=== PATIENT | male | born 1950 | race Caucasian/White ===

== ENCOUNTER 2021-07-13 10:55 | Inpatient (IN) | payer MEDICAID, SELFPAY ==
[2021-07-13] VITALS (10 sets, daily range): BP systolic 103–139; BP diastolic 63–76; PULSE 75–130; RESP 18–26; TEMP 37.1–39.1; O2SAT 63–100; BMI 22.4
--- NOTE | ~2021-07-13 | XR_ITS ---
EXAMINATION: XR CHEST CLINICAL INFORMATION: OGT placement COMPARISON: Chest 07/21/2021 at 7:43 AM TECHNIQUE: Frontal view of the chest was obtained. FINDINGS: The lungs are hyperinflated with patchy airspace opacity left midlung and left lower lobe. Position of right jugular central venous catheter tip in mid SVC. The endotracheal tube is 5.0 cm above the nasim. New enteric tube is below the diaphragm XR/XR chest 1V IMPRESSION: Hyperinflated lungs with airspace disease in the left midlung and left lower lobe. New enteric tube tip is below diaphragm. Endotracheal tube and right jugular central catheter are stable..
--- NOTE | ~2021-07-13 | XR_ITS ---
EXAMINATION: XR CHEST CLINICAL INFORMATION: Aspiration COMPARISON: 07/13/2021 TECHNIQUE: Frontal view of the chest was obtained. FINDINGS: Cardiac leads overlie the chest. The lungs are well expanded. Improved aeration at the right base compared to prior. Increased patchy opacities of the left mid to lower lung. No pleural effusion or pneumothorax. The cardiomediastinal silhouette is normal in size with a calcified aorta. XR/XR chest 1V IMPRESSION: Improved aeration of the right lung compared to prior. Increased patchy left mid to lower lung opacities.
--- NOTE | ~2021-07-13 | XR_ITS ---
EXAMINATION: XR CHEST CLINICAL INFORMATION: Post intubation COMPARISON: 07/21/2021 TECHNIQUE: Frontal view of the chest was obtained. FINDINGS: Endotracheal tube in place terminating approximately 6 cm above the nasim, at the level of the clavicles. Cardiac leads overlie the chest. The lungs are well expanded. Airspace opacities of the left mid to lower lung are again noted, similar to prior. No pleural effusion or pneumothorax. The cardiomediastinal silhouette is normal in size. XR/XR chest 1V IMPRESSION: Endotracheal tube terminating 6 cm above the nasim. Similar appearance of the left lung airspace opacities.
--- NOTE | ~2021-07-13 | XR_ITS ---
EXAMINATION: XR CHEST CLINICAL INFORMATION: Cough. COMPARISON: None TECHNIQUE: Frontal view of the chest was obtained. FINDINGS: The lungs are expanded with patchy airspace opacities in left midlung parahilar region, left lower lobe and right middle lobe consistent with infiltrates. There is no pleural effusion or pneumothorax. The heart size and pulmonary vascularity is normal. XR/XR chest 1V IMPRESSION: Bilateral airspace opacities consistent with infiltrates.
--- NOTE | ~2021-07-13 | XR_ITS ---
EXAMINATION: XR CHEST CLINICAL INFORMATION: Triple-lumen catheter insertion COMPARISON: Chest x-ray earlier this morning TECHNIQUE: Frontal view of the chest was obtained. Today's examination is mildly limited secondary to patient rotation. FINDINGS: Interval insertion of right-sided jugular catheter with tip terminating within the distal SVC. There is no pneumothorax. Endotracheal tube is unchanged in position. Left lung airspace disease is unchanged. XR/XR chest 1V IMPRESSION: No pneumothorax status post catheter placement.
--- NOTE | 2021-07-13 11:09 | ECG_ITS ---
Test Reason : sob Blood Pressure : / mmHG Vent. Rate : 100 BPM Atrial Rate : 100 BPM P-R Int : 144 ms QRS Dur : 080 ms QT Int : 354 ms P-R-T Axes : 075 007 053 degrees QTc Int : 456 ms Artifact in tracing Probable sinus rhythm Likely normal EKG No previous ECGs available Referred By: Milton Grijalva Electronically Signed By:FLORENTINO PEARSON
--- NOTE | 2021-07-13 11:26 | ED_ITS ---
HPI - SOB/Dyspnea General Chief Complaint: Dyspnea Stated Complaint: +COVID,SOB, 84% RA PER SNF Time Seen by Provider: 07/13/21 11:05 Source: EMS Mode of arrival: EMS Limitations: altered mental status History of Present Illness HPI Narrative: This is a 70 years old the patient with history of advanced dementia retirement resident sent here by the retirement a because acute respiratory distress. EMS reported that is COVID positive. The patient is unable to give any history. The patient has also history of alcohol abuse in the past MD elicited complaint: shortness of breath and cough Pertinent past history: other (dementia/covid positive) Onset (ago): hour(s) (6) Timing: constant Severity: moderate Exacerbating factors: coughing Relieving factors: oxygen Related Data Allergies Allergy/AdvReac Type Severity Reaction Status Date / Time No Known Allergies Allergy Verified 07/13/21 11:09 Review of Systems Respiratory: Respiratory: Reports as per HPI [facility] Past Medical History Medical History (Updated 07/13/21 @ 12:54 by Roberto Vega MD) Abnormal results of liver function studies Age-related nuclear cataract, bilateral Alcohol dependence, in remission Alzheimer disease Basal cell carcinoma HCV (hepatitis C virus) History of falling HTN (hypertension) Insomnia, unspecified Need for assistance with personal care Other psychoactive substance abuse, uncomplicated Personal history of nicotine dependence Solitary pulmonary nodule TBI (traumatic brain injury) Unilateral inguinal hernia, without obstruction or gangrene, not specified as recurrent Surgical History (Updated 07/13/21 @ 12:55 by Roberto Vega MD) S/P Mohs surgery for basal cell carcinoma Social History Social History (Updated 07/13/21 @ 12:56 by Roberto Vega MD) Alcohol intake: former Patient Tobacco Use Status: Former Tobacco user Use of substances other than those prescribed or required for medical reasons: Yes Substance Use Type: Crack/Cocaine, Heroin and Marijuana Last Used Substance: Unknown Advance Directives: No Advance Directives Information Provided: No Physical Exam Vital Signs: Vital Signs: Last Vital Signs Temp 102.3 F H 07/13/21 11:12 Pulse 102 H 07/13/21 12:00 Resp 26 H 07/13/21 12:00 BP 136/75 07/13/21 12:00 Pulse Ox 100 07/13/21 12:00 BMI result Body Mass Index 22.4 Const: General: diaphoretic and ill appearing Nutritional Appearance: average body habitus Limitations: no limitations HENMT: Head: Yes normal to inspection Face and sinus: Yes normal facial exam Mouth: Normal oral and palatal mucosa present Throat: Yes posterior oropharynx normal Neck: Neck: Yes normal visual inspection and Yes full ROM Chest: Chest palpation & inspection: normal inspection of the chest Resp: Effort & Inspection: labored Auscultation: rhonchi Cardio: Jugular venous distension: no JVD Rate: regular rate Rhythm: regular rhythm GI: Inspection: Yes normal to inspection Palpation (GI): Soft to palpation, not firm, nontender and no guarding Skin: General skin exam: no rashes or lesions noted Rashes: no rashes Course Reevaluation(s) Reevaluation #1: Improving somewhat, I called the next of Kin who is court appointed layer pt is full code for now,lead case manager consulted as well MDM - SOB/Dyspnea Lab Data Result diagrams: 07/13/21 11:25 07/13/21 11:25 Labs: Lab Results 07/13/21 07/13/21 07/13/21 Range/Units 11:25 11:25 11:25 WBC 7.0 (4.8-10.8) X10*3/uL RBC 5.31 (4.60-5.80) X10*6/uL Hgb 14.7 (14.0-18.0) g/dl Hct 45.1 (42.0-52.0) % MCV 84.9 (80.0-98.0) fL MCH 27.7 (27.0-33.0) pg MCHC 32.6 (31.0-36.0) g/dl RDW 14.6 (11.0-16.0) % Plt Count 165 (160-400) X10*3/uL MPV 11.4 (9.4-12.4) fL Absolute Nucleated RBC 0.000 (0.0-0.012) X10*3/uL Nucleated RBC % (auto) 0.0 (0.0-0.2) /100WBC Neutrophils % (Manual) 71 (45-73) % Band Neutrophils % 16 H (3-5) % Lymphocytes % (Manual) 7 L (20-40) % Atypical Lymphs % (Man) 2 (0-6) % Monocytes % (Manual) 3 (2-11) % Metamyelocytes % 1 % Abs Neuts (Manual) 6.1 (2.0-8.3) X10*3/uL Lymphocytes # (Manual) 0.5 L (1.2-4.9) X10*3/uL Atyp Lymphs # (Manual) 0.1 x10*3/uL Monocytes # (Manual) 0.2 (0.1-1.2) X10*3/uL Metamyelocytes # 0.1 X10*3/uL Platelet Estimate NORMAL (NORMAL) Plt Morphology Comment NOTE RBC Morphology NORMAL VBG pH (7.32-7.43) VBG pCO2 mmHg VBG pO2 mmHg VBG HCO3 (22-26) mmol/L VBG O2 Saturation % VBG Base Excess mmol/L Sodium 143 (135-145) mmol/L Potassium 4.2 (3.3-5.1) mmol/L Chloride 106 (96-108) mmol/L Carbon Dioxide 28 (22-29) mmol/L Anion Gap 13 (12-20) BUN 43 H (9-16) mg/dL Creatinine 1.25 (0.5-1.4) mg/dL Estim Creat Clear Calc 59.8 Estimated GFR 57 Random Glucose 118 H (60-115) mg/dL Lactic Acid (0.5-2.0) mmol/L Calcium 10.3 H (8.4-10.2) mg/dL Total Bilirubin 0.9 (0.0-1.0) mg/dL AST 40 H (5-37) U/L ALT 37 (0-40) U/L Alkaline Phosphatase 67 (39-117) U/L Troponin I High Sens 57.1 H (<3.5-35.0) ng/L Total Protein 7.6 (6.5-8.0) g/dL Albumin 3.9 (3.5-5.0) g/dL COVID-19 (AFSANEH) (Negative) COVID-19 Clin Com 07/13/21 07/13/21 07/13/21 Range/Units 11:26 11:50 11:50 WBC (4.8-10.8) X10*3/uL RBC (4.60-5.80) X10*6/uL Hgb (14.0-18.0) g/dl Hct (42.0-52.0) % MCV (80.0-98.0) fL MCH (27.0-33.0) pg MCHC (31.0-36.0) g/dl RDW (11.0-16.0) % Plt Count (160-400) X10*3/uL MPV (9.4-12.4) fL Absolute Nucleated RBC (0.0-0.012) X10*3/uL Nucleated RBC % (auto) (0.0-0.2) /100WBC Neutrophils % (Manual) (45-73) % Band Neutrophils % (3-5) % Lymphocytes % (Manual) (20-40) % Atypical Lymphs % (Man) (0-6) % Monocytes % (Manual) (2-11) % Metamyelocytes % % Abs Neuts (Manual) (2.0-8.3) X10*3/uL Lymphocytes # (Manual) (1.2-4.9) X10*3/uL Atyp Lymphs # (Manual) x10*3/uL Monocytes # (Manual) (0.1-1.2) X10*3/uL Metamyelocytes # X10*3/uL Platelet Estimate (NORMAL) Plt Morphology Comment RBC Morphology VBG pH 7.39 (7.32-7.43) VBG pCO2 43 mmHg VBG pO2 33 mmHg VBG HCO3 26 (22-26) mmol/L VBG O2 Saturation 42.0 % VBG Base Excess 1.6 mmol/L Sodium (135-145) mmol/L Potassium (3.3-5.1) mmol/L Chloride (96-108) mmol/L Carbon Dioxide (22-29) mmol/L Anion Gap (12-20) BUN (9-16) mg/dL Creatinine (0.5-1.4) mg/dL Estim Creat Clear Calc Estimated GFR Random Glucose (60-115) mg/dL Lactic Acid 3.6 H* (0.5-2.0) mmol/L Calcium (8.4-10.2) mg/dL Total Bilirubin (0.0-1.0) mg/dL AST (5-37) U/L ALT (0-40) U/L Alkaline Phosphatase (39-117) U/L Troponin I High Sens (<3.5-35.0) ng/L Total Protein (6.5-8.0) g/dL Albumin (3.5-5.0) g/dL COVID-19 (AFSANEH) Positive A (Negative) COVID-19 Clin Com See Note Imaging Data Chest x-ray: Radiologist's impression: EXAMINATION: XR CHEST CLINICAL INFORMATION: Cough. COMPARISON: None TECHNIQUE: Frontal view of the chest was obtained. FINDINGS: The lungs are expanded with patchy airspace opacities in left midlung parahilar region, left lower lobe and right middle lobe consistent with infiltrates. There is no pleural effusion or pneumothorax. The heart size and pulmonary vascularity is normal. XR/XR chest 1V IMPRESSION: Bilateral airspace opacities consistent with infiltrates. ? Dictated By: Ezra Saunders MD Signed By: <Electronically signed by Ezra Saunders MD in OV> 07/13/21 1218 DD/ 1155 Procedures EJ/Peripheral Line left basici vein: Time Out Performed: Yes Skin Cleansed in Sterile Fashion: Yes Size (gauge): 16 IV Secured and Dressing Applied: Yes Patient Tolerated Procedure: well Additional Comments: under US cannulated left basilic vein with 18 lashaun long catheter Critical Care Time Critical Care Time Critical Care Time: Yes Total Critical Care Time: 45 Attestation: Lab reviewed, speaking the hospitalist, Discharge Plan Discharge Clinical Impression: Pneumonia due to 2019-nCoV Patient Disposition: Admitted As Inpatient
[2021-07-13 11:32] LABS: VBG Base Excess 1.6 mmol/L; VBG HCO3 26 mmol/L (22-26); VBG pCO2 43 mmHg; VBG pH 7.39 (7.32-7.43); VBG pO2 33 mmHg
[2021-07-13 11:32] LABS: Venous Blood Gas Refer to POC result
[2021-07-13 11:33] LABS: Hematocrit 45.1 % (42.0-52.0); Hemoglobin 14.7 g/dl (14.0-18.0); Mean Corpuscular HGB Conc 32.6 g/dl (31.0-36.0); Mean Corpuscular Hemoglobin 27.7 pg (27.0-33.0); Mean Corpuscular Volume 84.9 fL (80.0-98.0); Mean Platelet Volume 11.4 fL (9.4-12.4); Platelet Count 165 X10*3/uL (160-400); Red Blood Count 5.31 X10*6/uL (4.60-5.80); Red Cell Distribution Width 14.6 % (11.0-16.0)
[2021-07-13] MEDS: Piperacillin Sodium/Tazobactam 4.5 GM in 0.9 % Sodium Chloride 100 ML IV (11:40)
[2021-07-13 11:41] LABS: WBC ABN SCTR FOR CBC 1
[2021-07-13 11:50] LABS: Alanine Aminotransferase 37 U/L (0-40); Albumin Level 3.9 g/dL (3.5-5.0); Alkaline Phosphatase 67 U/L (39-117); Anion Gap 13 (12-20); Aspartate Amino Transferase 40 U/L (5-37); Bilirubin Total 0.9 mg/dL (0.0-1.0); Blood Urea Nitrogen 43 mg/dL (9-16); Calcium 10.3 mg/dL (8.4-10.2); Carbon Dioxide 28 mmol/L (22-29); Chloride 106 mmol/L (96-108); Creatinine Clr Calc Pharmacy 59.8; Estimated Glomerular Filt Rate 57; Glucose Random 118 mg/dL (60-115); Potassium 4.2 mmol/L (3.3-5.1); Sodium 143 mmol/L (135-145); Total Protein 7.6 g/dL (6.5-8.0)
[2021-07-13 11:54] LABS: Troponin-I High Sensitivity 57.1 ng/L (<3.5-35.0)
[2021-07-13 12:00] LABS: Atypical Lymphs Percent Manual 2 % (0-6); Band Neutrophils Percent 16 % (3-5); Lymphocytes Percent Manual 7 % (20-40); Metamyelocytes Percent 1 %; Monocytes Percent Manual 3 % (2-11); Neutrophils Percent Manual 71 % (45-73); Platelet Estimate NORMAL (NORMAL); RBC Morphology NORMAL
[2021-07-13 12:02] LABS: Platelet Morphology Comment NOTE
[2021-07-13] MEDS: Acetaminophen Supp 650 MG SUPP.RECT PR (12:02)
[2021-07-13 12:03] LABS: Atypical Lymph Absolute Manual 0.1 x10*3/uL; Lymphocytes Absolute Manual 0.5 X10*3/uL (1.2-4.9); Metamyelocytes Absolute 0.1 X10*3/uL; Monocytes Absolute Manual 0.2 X10*3/uL (0.1-1.2); Neutrophils Absolute Manual 6.1 X10*3/uL (2.0-8.3)
[2021-07-13] MEDS: 0.9 % Sodium Chloride 2,245.29 ML 2245.29 ML IV (12:06)
[2021-07-13 12:11] LABS: COVID-19 Test Positive (Negative)
[2021-07-13 12:14] LABS: Lactic Acid 3.6 mmol/L (0.5-2.0)
[2021-07-13] MEDS: vancomycin HCL 1,000 MG in 0.9 % Sodium Chloride 250 ML 270 MG IV (12:17)
--- NOTE | 2021-07-13 12:18 | PC.NURSE ---
patient awake, but not verbally responding to staff, pvc monitor applied, sinus tach on monitor, pt on nrb 15+L- o2 sat currently 100%, iv inserted by provider, labs drawn by provider, ivf running per order, iv antibiotics given per order, pt medicated for fever, del real cath inserted, ekg being performed, will continue to monitor.
--- NOTE | 2021-07-13 13:12 | PM.IMHP ---
History of Present Illness Date of Service: 07/13/21 Chief Complaint: hypoxia 70[facility] from [facility] [place], was sent in for hypoxia, patient was noted to be tachypneic, saturating 84% on room air, refusing to wear oxygen, sent to ED. in ED covid positive, cxr with bilateral opacities, febrile, confused. was placed on 100% NRB with recovery of sats to 100%. patient unable to give history, attempted to get more information from [facility], but no answer. Review of Systems Review of Systems: Yes Unobtainable due to mental condition [facility] Medical History (Updated 07/13/21 @ 12:54 by Roberto Vega MD) Abnormal results of liver function studies Age-related nuclear cataract, bilateral Alcohol dependence, in remission Alzheimer disease Basal cell carcinoma HCV (hepatitis C virus) History of falling HTN (hypertension) Insomnia, unspecified Need for assistance with personal care Other psychoactive substance abuse, uncomplicated Personal history of nicotine dependence Solitary pulmonary nodule TBI (traumatic brain injury) Unilateral inguinal hernia, without obstruction or gangrene, not specified as recurrent Surgical History (Updated 07/13/21 @ 12:55 by Roberto Vega MD) S/P Mohs surgery for basal cell carcinoma Social History (Updated 07/13/21 @ 12:56 by Roberto Vega MD) Alcohol intake: former Patient Tobacco Use Status: Former Tobacco user Use of substances other than those prescribed or required for medical reasons: Yes Substance Use Type: Crack/Cocaine, Heroin and Marijuana Last Used Substance: Unknown Advance Directives: No Advance Directives Information Provided: No Meds Allergies Allergy/AdvReac Type Severity Reaction Status Date / Time No Known Allergies Allergy Verified 07/13/21 11:09 Active Medications: Current Medications Dexamethasone Sodium Phosphate (Dexamethasone Sod Phosphate 4 Mg/Ml Vial) 6 mg IVPUSH DAILY [facility] Enoxaparin Sodium (Enoxaparin Sodium 40 Mg/0.4 Ml Syringe) 40 mg SUBCUT Q24H [facility] Pharmacy Consult (Consult Rx Vancomycin Dosing) 1 each MISCELLANE DAILY PRN PRN Reason: Consult order Sodium Chloride (0.9 % Sodium Chloride Flush 3 Ml Syringe) 3 ml IVFLUSH QSHIFT [facility] Physical Exam Vital Signs and Narrative: Vital Signs: Last Vital Signs Temp 102.3 F H 07/13/21 11:12 Pulse 102 H 07/13/21 12:00 Resp 26 H 07/13/21 12:00 BP 136/75 07/13/21 12:00 Pulse Ox 100 07/13/21 12:00 BMI result Body Mass Index 22.4 General: obtunded, moving voluntarily, not answering questions HEENT: atraumatic Neck: normal to visual inspection CVS: S1, S2, RRR Resp: rhonchi bilateral Chest: non tender GI: soft, non tender, non distended : no CVA tenderness Skin: no rashes Extremities: no edema Neuro: moving all 4 limbs, confused Psych: impaired insight Results Labs CBC and Chem 7: 07/13/21 11:25 07/13/21 11:25 Labs: Laboratory Results - last 24 hr 07/13/21 07/13/21 07/13/21 11:25 11:25 11:25 MCV 84.9 MCH 27.7 MCHC 32.6 RDW 14.6 Plt Count 165 MPV 11.4 Absolute Nucleated RBC 0.000 Nucleated RBC % (auto) 0.0 Neutrophils % (Manual) 71 Band Neutrophils % 16 H Lymphocytes % (Manual) 7 L Atypical Lymphs % (Man) 2 Monocytes % (Manual) 3 Metamyelocytes % 1 Abs Neuts (Manual) 6.1 Lymphocytes # (Manual) 0.5 L Atyp Lymphs # (Manual) 0.1 Monocytes # (Manual) 0.2 Metamyelocytes # 0.1 Platelet Estimate NORMAL Plt Morphology Comment NOTE RBC Morphology NORMAL VBG pH VBG pCO2 VBG pO2 VBG HCO3 VBG O2 Saturation VBG Base Excess Anion Gap 13 Estim Creat Clear Calc 59.8 Estimated GFR 57 Random Glucose 118 H Lactic Acid Calcium 10.3 H Total Bilirubin 0.9 AST 40 H ALT 37 Alkaline Phosphatase 67 Troponin I High Sens 57.1 H Total Protein 7.6 Albumin 3.9 COVID-19 (AFSANEH) COVID-19 Clin Com 07/13/21 07/13/21 07/13/21 11:26 11:50 11:50 MCV MCH MCHC RDW Plt Count MPV Absolute Nucleated RBC Nucleated RBC % (auto) Neutrophils % (Manual) Band Neutrophils % Lymphocytes % (Manual) Atypical Lymphs % (Man) Monocytes % (Manual) Metamyelocytes % Abs Neuts (Manual) Lymphocytes # (Manual) Atyp Lymphs # (Manual) Monocytes # (Manual) Metamyelocytes # Platelet Estimate Plt Morphology Comment RBC Morphology VBG pH 7.39 VBG pCO2 43 VBG pO2 33 VBG HCO3 26 VBG O2 Saturation 42.0 VBG Base Excess 1.6 Anion Gap Estim Creat Clear Calc Estimated GFR Random Glucose Lactic Acid 3.6 H* Calcium Total Bilirubin AST ALT Alkaline Phosphatase Troponin I High Sens Total Protein Albumin COVID-19 (AFSANEH) Positive A COVID-19 Clin Com See Note Imaging Radiologist's Impressions: Impressions Chest X-Ray 07/13/21 11:55 IMPRESSION: Bilateral airspace opacities consistent with infiltrates. Assessment and Plan (1) Pneumonia due to 2019-nCoV: Status: Acute 70M presented with hypoxia acute hypoxic respiratory failure and metabolic encephalopathy due to covid 19 decadron o2 for goal 90% wean as tolerated monitor prognostic labs poor prognosis alzheimer dementia with behavioural disturbances also due to TBI will hold mood stabiliziers while obtunded HCV no obvious advanced fibrosis history of etoh, alochol, tobacco dependence in remission dvt prophylaxis - lovenox Full code Quality Stroke Does the patient have a stroke diagnosis?: No VTE Prior VTE?: No VTE Risk Level:: Medical - moderate - high VTE Device Contraindication: Treatment Not Indicated VTE Drug Contraindication: N/A - Med Ordered
--- NOTE | 2021-07-13 13:39 | PHA.MEDREC ---
Pharmacy Consult ? Medication Reconciliation Pharmacy has completed the medication reconciliation.List from snf.
[2021-07-13 13:54] LABS: Reflex Lactate? Lactic Acid Added
[2021-07-13 14:21] LABS: ~Lactic Acid-LAB USE ONLY 1.9 mmol/L (0.5-2.0)
[2021-07-13] MEDS: dexAMETHasone sod phosphate 4 MG/ML VIAL 6 MG IVPUSH (15:08)
[2021-07-13] MEDS: Enoxaparin Sodium 40 MG/0.4 ML SYRINGE SUBCUT (15:08)
--- NOTE | 2021-07-13 15:14 | PC.NURSE ---
patient sleeping, wakes to verbal stim, athletic monitor intact, sinus tach, vss, pt on nrb mask- will speak with provider/respiratory about changing to high flow O2, call brown within reach, will continue to monitor
--- NOTE | 2021-07-13 15:16 | PHA.PROG ---
Admission Date/Time: July 13, 2021 13:02 Indication: Bacteremia Weight in k.843 kg Adjusted body weight in Kg: [place] body weight in Kg: Obesity Dosing Indication % IBW: Serum Creatinine - Last 168 Hours 07/13/21 11:25 Creatinine 1.25 Estimated CrCl and GFR - Last 168 Hours 07/13/21 11:25 Estim Creat Clear Calc 59.8 Estimated GFR 57 Vancomycin Loading Dose: 1500 mg Current Vancomycin Dosing Regimen: 1250mg Q24H Vancomycin Monitoring using AUC goal of 400 - 600 range with trough as surrogate marker: AUC 477; TROUGH 14 Date and Time for next Vancomycin Level to be drawn: 07/15/21 @1300 Pharmacist Comments on Vancomycin Plan: 1000mg dose given in ED. I added an additional 500mg to load the patient at 20mg/kg to get patient therapeutic @ roughly 50 hours. Vancomycin dosing will take advantage of Z2 as a clinical decision support tool that uses Bayesian modeling to calculate individual patient's pharmacokinetic parameters and forecast the patient's drug concentration time course with the target goal AUC 24 range of 400 - 600 mg/L/hr.
--- NOTE | 2021-07-13 15:57 | PC.NURSE ---
per request of hospitalist pt was taken off NRB and put on 8l NC patients o2 sat went down to 63%, pt was put back on nrb, will notify hospitalist
[2021-07-13] MEDS: 0.9 % Sodium Chloride Flush 3 ML SYRINGE IVFLUSH (16:00)
--- NOTE | 2021-07-13 17:02 | PC.NURSE ---
patient placed on high flow O2
[2021-07-13] MEDS: vancomycin HCL 500 MG in 0.9 % Sodium Chloride 100 ML 110 MG IV (17:14)
--- NOTE | 2021-07-13 17:16 | PC.NURSE ---
del real cath patient draining
--- NOTE | 2021-07-13 19:30 | PC.NURSE ---
pt sleeping, wakes to verbal stimulus, del real cath patient/draining, high flow o2 intact, nurse monitoring nsr, vitals currently stable, pt turned/positioned to comfort, will continue to monitor.
--- NOTE | 2021-07-13 22:10 | MHC.CM.PN ---
CM did not meet with admitted pt with bed assignment pending secondary to advanced dementia/TBI and pt being non-verbal. CM reviewed medical record and records from [facility]. No IMM necessary. No HCP on file. Guardianship on file. [employer]ician Yoselin [employer] ([phone]). Relative is Trupti Peacock, cousin ([phone]). Pt is Covid Positive. Fully vaccinated and boosted with Pfizer 07/05/20,07/26/20, and 04/23/21. Pt is a full code. Pt is non-verbal. Prognosis is poor. D/C plan is to return to [facility] if condition improves. Will need S transportation. CM to follow for d/c needs.
--- NOTE | 2021-07-13 22:40 | PC.NURSE ---
patient sleeping, wakes to verbal stimulus, cloth desizing range tender nsr, high flow o2, vss, del real patient/draining clear yellow urine, seizure pads placed on bed because patient was kicking his feet out through the side rails- this was not done for seizure precautions, call brown within reach, will continue to monitor.
[2021-07-14] VITALS (15 sets, daily range): BP systolic 121–161; BP diastolic 28–83; PULSE 63–110; RESP 17–34; TEMP 36.8–37.4; O2SAT 81–97
--- NOTE | 2021-07-14 01:59 | PC.NURSE ---
Pt no longer on HFNC, now on 2L NC maintaining sat 94% and greater.
--- NOTE | 2021-07-14 02:10 | PC.NURSE ---
Per Arabella, RN pt was changed from HFNC to NC around 2330 with good effect. At this time, however, this RN notes that pt is desat to 87% despite 5L NC. RT made aware, plan to place pt back on HFNC. VS stable otherwise. Pt urine sent for processing, edl real cath draining appropriately.
--- NOTE | 2021-07-14 02:17 | PC.NURSE ---
Pt RT, plan for Wm GONZALEZ rather than NC at this time
[2021-07-14 02:30] LABS: Appearance Urine CLOUDY; Color Urine DK YELLOW; Glucose Urine UA NEG (NEG); Leukocyte Esterase Urine NEG (NEG); Nitrite Urine NEG (NEG); PH 5.5 (5.0-8.0); Specific Gravity - Urine >= 1.030 (1.005-1.025); Urine Blood 2+ (NEG); Urine Ketones NEG (NEG); Urine Protein 2+ MG/DL (NEG-TRACE)
[2021-07-14 02:38] LABS: Bacteria Urine TRACE /LPF; Renal Epithelial Cells Urine 1+ /LPF; Squamous Epithelial Cell Urine 2+ /LPF
[2021-07-14 02:39] LABS: Amorphous Sediment Urine 2+ /LPF; Mucus Urine 3+ /LPF
--- NOTE | 2021-07-14 02:39 | PC.NURSE ---
RT placed pt on nguyen at 7lpm. pt o2 sat 91% per lianna, goal is spo2 >/= 90%
--- NOTE | 2021-07-14 03:26 | PC.NURSE ---
Pt resting on stretcher in NAD, breathing with ease on supplemental O2 via humidified nguyen. Pt without nonverbal indicators of pain/discomfort. Pt with seizure pads on side rails x 2 as pt was repositioning self in bed, frequently placed legs through metal side rails. Pt appears in position of comfort. Pt del real cath draining appropriately. Stretcher in low locked position, rails raised, call belll within reach. Pt with red fall prevention socks on, red fall alert wrist band and red fall star sign posted outside of room.
--- NOTE | 2021-07-14 06:36 | PC.NURSE ---
Dr Lopez made aware that this RN held pt's PO omeprazole as pt is unable to follow commands and this RN does not feel it is safe to provide PO to patient. Dr Lopez agreeable.
[2021-07-14 09:15] LABS: Anion Gap 15 (12-20); Blood Urea Nitrogen 35 mg/dL (9-16); Calcium 9.4 mg/dL (8.4-10.2); Carbon Dioxide 21 mmol/L (22-29); Chloride 116 mmol/L (96-108); Creatinine Clr Calc Pharmacy 97.1; Estimated Glomerular Filt Rate > 60; Glucose Fasting 113 mg/dL (60-99); Lactate Dehydrogenase 309 U/L (118-273); Potassium 4.6 mmol/L (3.3-5.1); Sodium 147 mmol/L (135-145)
[2021-07-14] MEDS: dexAMETHasone sod phosphate 4 MG/ML VIAL 6 MG IVPUSH (10:35)
--- NOTE | 2021-07-14 10:54 | PC.NURSE ---
pt is alert, pulling at devices but not with enought force to dislodge anything. cleansed of small firm BM. sao2 droppes to 81% during bed change and back up to 86% on 15L [place] at rest. pt unable to answer any questions.
--- NOTE | 2021-07-14 11:08 | HE.PHANOTE ---
Vancomycin Addendum Vancomycin was orginally DC'd today. Dr Vega restarted. Will start 1500 mg Q24H. SCr has imporved since yesterday decrease from 07/28 to 0.77. Will start at 1200, which is 12 hours after first dose so that patient gets into therapeutic ranges after 3rd dose. Expected AUC 483 with a trough of 13.2 Demetria Brand, PharmD
--- NOTE | 2021-07-14 12:13 | P.PNIM_ITS ---
Subjective Subjective Date of Service: 07/14/21 Interval History: cc: hypoxia interval history: unable to obtain, patient obtunded, not conversing Review of Systems Review of Systems: Yes Unobtainable due to mental condition Physical Exam Vital Signs: Vital Signs: Last Vital Signs Temp 98.4 F 07/14/21 07:38 Pulse 81 07/14/21 10:54 Resp 33 H 07/14/21 11:34 BP 159/79 H 07/14/21 10:54 Pulse Ox 86 L 07/14/21 10:54 BMI result Body Mass Index 22.4 General: obtunded, ill appearing, not talking Resp: rhonchi bilateral, no accessory muscles used CVS: S1,S2,RRR GI: soft, non tender, non distended Neuro: moves all 4 limbs Psych: impaired insight Objective Data Active Medications Dexamethasone Sodium Phosphate (Dexamethasone Sod Phosphate 4 Mg/Ml Vial) 6 mg IVPUSH DAILY [facility] Last Admin: 07/14/21 10:35 Dose: 6 mg Documented by: CLIVE Enoxaparin Sodium (Enoxaparin Sodium 40 Mg/0.4 Ml Syringe) 40 mg SUBCUT Q24H [facility] Last Admin: 07/13/21 15:08 Dose: 40 mg Documented by: FANTA Fluvoxamine Maleate (Fluvoxamine Maleate 50 Mg Tablet) 100 mg PO BID@0900,1700 [facility] Last Admin: 07/14/21 10:36 Dose: Not Given Documented by: CLIVE Non-Admin Reason: NPO Haloperidol Lactate (Haloperidol Lactate 5 Mg/Ml Vial) 2 mg IM ONCE ONE Stop: 07/14/21 12:05 Vancomycin HCl 1,500 mg/ (Sodium Chloride) 500 mls @ 333.333 mls/hr IV Q24H [facility] Dextrose (D5w) 1,000 mls @ 100 mls/hr IVCONT .Q10H [facility] Omeprazole (Omeprazole 20 Mg Capsule.Dr) 20 mg PO BID@0630,1630 [facility] Last Admin: 07/14/21 06:31 Dose: Not Given Documented by: EVELIA Non-Admin Reason: NPO Pharmacy Consult (Consult Rx Vancomycin Dosing) 1 each MISCELLANE DAILY PRN PRN Reason: Consult order Pharmacy Consult (Consult Rx Perform Med Rec) 1 each MISCELLANE ONCE PRN PRN Reason: Consult order Pharmacy Consult (Consult Rx Vancomycin Dosing) 1 each MISCELLANE DAILY PRN PRN Reason: Consult order Sodium Chloride (0.9 % Sodium Chloride Flush 3 Ml Syringe) 3 ml IVFLUSH QSHIFT [facility] Last Admin: 07/14/21 10:19 Dose: Not Given Documented by: CLIVE Non-Admin Reason: Med Not Available Labs CBC & Chem 7: 07/13/21 11:25 07/14/21 08:34 Labs: Laboratory Results - last 24 hr 07/13/21 07/13/21 07/14/21 11:50 14:05 02:08 Anion Gap Estim Creat Clear Calc Estimated GFR Fasting Glucose Lactic Acid 3.6 H* Lactic Acid F/U @ 2Hr 1.9 Calcium Lactate Dehydrogenase C-Reactive Protein Urine Color DK YELLOW Urine Appearance CLOUDY Urine pH 5.5 Ur Specific Ursa >= 1.030 H Urine Protein 2+ H Urine Glucose (UA) NEG Urine Ketones NEG Urine Blood 2+ H Urine Nitrite NEG Ur Leukocyte Esterase NEG Urine RBC 1-4 Urine WBC 1-4 Ur Squamous Epith Cells 2+ Ur Renal Epithelial Cell 1+ Amorphous Sediment 2+ Urine Bacteria TRACE Urine Mucus 3+ 07/14/21 08:34 Anion Gap 15 Estim Creat Clear Calc 97.1 Estimated GFR > 60 Fasting Glucose 113 H Lactic Acid Lactic Acid F/U @ 2Hr Calcium 9.4 D Lactate Dehydrogenase 309 H C-Reactive Protein 29.10 H Urine Color Urine Appearance Urine pH Ur Specific Ursa Urine Protein Urine Glucose (UA) Urine Ketones Urine Blood Urine Nitrite Ur Leukocyte Esterase Urine RBC Urine WBC Ur Squamous Epith Cells Ur Renal Epithelial Cell Amorphous Sediment Urine Bacteria Urine Mucus Microbiology Microbiology Results: Microbiology 07/14/21 07:28 Blood Culture - Final Blood - Venous 07/13/21 11:50 Blood Culture - Preliminary Blood - Venous Prelim: GPC Gram Stain only Assessment and Plan (1) Pneumonia due to 2019-nCoV: Status: Acute Assessment and Plan: ?70M presented with hypoxia acute hypoxic respiratory failure and metabolic encephalopathy due to covid 19 decadron day 2 o2 for goal 90% - requiring high flow now dysphagia due to encephalopathy- npo for now, causing hypernatremia - will start on d5w, monitor bmp monitor prognostic labs poor prognosis GPC in 1/2 bottles ?real bacteremia vs contaminant will treat with vancomycin, follow up species and repeat culture 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
--- NOTE | 2021-07-14 12:19 | PC.NURSE ---
pt became very aggitated, removing high flow, sao2 remained in mid eights or better but aggitation remained. soft restraints applied.
[2021-07-14] MEDS: Haloperidol Lactate 5 MG/ML VIAL 2 MG IM ×3 (12:35→18:29)
--- NOTE | 2021-07-14 13:22 | PC.NURSE ---
after extended period of aggitation and sao2 in 80's despite NRB and high flow pt has calmed. NRB removed and pt remains at rest with soft restraints in place.
[2021-07-14 13:24] LABS: Glucose, Whole Blood 122 mg/dL (60-115)
--- NOTE | 2021-07-14 13:27 | PC.NURSE ---
low of 84% on high flow, pt becoming aggitated again. nrb placed.
[2021-07-14] MEDS: Ketamine HCl/NS 50 MG/5 ML SYRINGE 20 MG IVPUSH (13:48)
--- NOTE | 2021-07-14 14:23 | PC.RT ---
pt getting very restless and agaitated. placed back on HFNC with increase 02 requirements at 100% and flow 55lpm as well as a non rebreather. pt continued to shave sats in the mid 80 to low [address] Vega agrees to give Ketamine. 20 minutes after Ketamine, pt.'s HR 97 Sat 95% rr 28. bp:130/78. Dr. Dial also aware of the situation. pt does have a bed on [facility] but he seems to be unstable to transition to the floor. The pt. requires to be sedated/medicated in order to keep sats up in the low 90's. as the patient is awake and moving he quickly decompensates with sats 70s. Will cotinue to monitor and speak with Dr. Vega as well as RN for plan for patient.
[2021-07-14] MEDS: vancomycin HCL 1,500 MG in 0.9 % Sodium Chloride 500 ML 333.33 MG IV (15:15)
[2021-07-14] MEDS: Dextrose 5 % 1,000 ML 100 ML IVCONT (15:18)
[2021-07-14] MEDS: Enoxaparin Sodium 40 MG/0.4 ML SYRINGE SUBCUT (15:19)
--- NOTE | 2021-07-14 15:45 | PC.NURSE ---
overall pt ismore sedate but remains alert and resistant to interventions. unable to follow commands and answer questions. rectal probe inserted. IV left upper arm was leaking at kink in angiocath tubing adn removed. awaiting second nurse for restablishment of IV. mult failed attempts by this RN>
--- NOTE | 2021-07-14 16:00 | PC.NURSE ---
rn to rn with
[2021-07-14] MEDS: 0.9 % Sodium Chloride Flush 3 ML SYRINGE IVFLUSH (17:40)
--- NOTE | 2021-07-14 18:04 | PC.NURSE ---
pt tolerated transfer [place] [facility] but aggitation started in increase in hallways. on NRB maintained 84-88% enroute then placed back in high flow. RT to continue establishing O2 delivery on floor. This RN giving bedside RN to RN with luis. Pt in need of additional sedation.
[2021-07-14 19:14] LABS: Hematocrit 39.2 % (42.0-52.0); Hemoglobin 12.9 g/dl (14.0-18.0); Mean Corpuscular HGB Conc 32.9 g/dl (31.0-36.0); Mean Corpuscular Hemoglobin 28.2 pg (27.0-33.0); Mean Corpuscular Volume 85.8 fL (80.0-98.0); Mean Platelet Volume 11.4 fL (9.4-12.4); Platelet Count 166 X10*3/uL (160-400); Red Blood Count 4.57 X10*6/uL (4.60-5.80); Red Cell Distribution Width 14.6 % (11.0-16.0); White Blood Count 10.6 X10*3/uL (4.8-10.8)
[2021-07-14 19:23] LABS: D Dimer High Sensitivity 611 NG/ML
[2021-07-15] VITALS (17 sets, daily range): BP systolic 116–154; BP diastolic 58–95; PULSE 69–99; RESP 18–22; TEMP 36.4–37.1; O2SAT 63–99
[2021-07-15] MEDS: Dextrose 5 % 1,000 ML 125 ML IVCONT ×3 (06:03→23:20)
[2021-07-15 06:44] LABS: Mean Corpuscular HGB Conc 32.4 g/dl (31.0-36.0); Mean Corpuscular Hemoglobin 27.5 pg (27.0-33.0); Mean Corpuscular Volume 84.7 fL (80.0-98.0); Mean Platelet Volume 11.9 fL (9.4-12.4); Platelet Count 169 X10*3/uL (160-400); Red Blood Count 4.37 X10*6/uL (4.60-5.80); Red Cell Distribution Width 14.6 % (11.0-16.0); White Blood Count 7.6 X10*3/uL (4.8-10.8)
[2021-07-15 06:50] LABS: D Dimer High Sensitivity 533 NG/ML
[2021-07-15 07:14] LABS: Anion Gap 13 (12-20); Blood Urea Nitrogen 33 mg/dL (9-16); C Reactive Protein 14.13 mg/dL (< or = 0.50); Calcium 9.1 mg/dL (8.4-10.2); Carbon Dioxide 22 mmol/L (22-29); Chloride 116 mmol/L (96-108); Creatinine Clr Calc Pharmacy 103.9; Estimated Glomerular Filt Rate > 60; Glucose Fasting 152 mg/dL (60-99); Lactate Dehydrogenase 215 U/L (118-273); Potassium 3.7 mmol/L (3.3-5.1); Sodium 147 mmol/L (135-145)
[2021-07-15] MEDS: dexAMETHasone sod phosphate 4 MG/ML VIAL 6 MG IVPUSH (08:57)
--- NOTE | 2021-07-15 12:38 | HO.PM.IMPN ---
Subjective Subjective Date of Service: 07/15/21 Interval History: Seen and evaluated this morning Altered mentation with increased level of anxiety Reported overnight restlessness Review of Systems Altered mentation, obtunded, nonverbal Physical Exam Vital Signs: Vital Signs: Last Vital Signs Temp 98.8 F 07/15/21 11:10 Pulse 90 07/15/21 11:10 Resp 20 07/15/21 12:13 BP 116/62 07/15/21 11:10 Pulse Ox 97 07/15/21 11:10 BMI result Body Mass Index 22.4 Const: Other: Constitutional : Altered mentation, withdrawal from pain, restless Neck : Normal inspection, Supple Cardiovascular : No JVP, no lower extremity edema Respiratory : Chest wall moving bilaterally, mildly tachypneic, on oxygen supplement of high flow Gastrointestinal: soft, lax, Normal bowel sounds, Non tender Skin : Warm, Dry Neurological : Altered, withdrawal from pain, nonverbal, GCS 7-8 Objective Data Active Medications Dexamethasone Sodium Phosphate (Dexamethasone Sod Phosphate 4 Mg/Ml Vial) [address] [facility] Last Admin: 07/15/21 08:57 Dose: 6 mg Documented by: VINH Enoxaparin Sodium (Enoxaparin Sodium 40 Mg/0.4 Ml Syringe) [address] [facility] Last Admin: 07/14/21 15:19 Dose: 40 mg Documented by: CLIVE Fluvoxamine Maleate (Fluvoxamine Maleate 50 Mg Tablet) 100 mg PO BID@0900,1700 [facility] Last Admin: 07/15/21 08:38 Dose: Not Given Documented by: VINH Non-Admin Reason: Unable to take oral/npo Haloperidol Lactate (Haloperidol Lactate 5 Mg/Ml Vial) 0.[address] [facility] Vancomycin HCl 1,500 mg/ (Sodium Chloride) 500 mls @ 333.333 mls/hr IV Q24H [facility] Last Infusion: 07/14/21 17:42 Dose: 0 mls/hr Documented by: DAINA Dextrose (D5w) 1,000 mls @ 125 mls/hr IVCONT .Q8H [facility] Last Admin: 07/15/21 06:03 Dose: 125 mls/hr Documented by: VINH Omeprazole (Omeprazole 20 Mg Jacob.) 20 mg PO BID@0630,1630 [facility] Last Admin: 07/15/21 06:02 Dose: Not Given Documented by: VINH Non-Admin Reason: unable to take oral at this time. Pharmacy Consult (Consult Rx Vancomycin Dosing) 1 each MISCELLANE DAILY PRN PRN Reason: Consult order Pharmacy Consult (Consult Rx Perform Med Rec) 1 each MISCELLANE ONCE PRN PRN Reason: Consult order Pharmacy Consult (Consult Rx Vancomycin Dosing) 1 each MISCELLANE DAILY PRN PRN Reason: Consult order Quetiapine Fumarate (Quetiapine Fumarate 50 Mg Tablet) [address] [facility] Sodium Chloride (0.9 % Sodium Chloride Flush 3 Ml Syringe) [address] [facility] Last Admin: 07/15/21 08:37 Dose: Not Given Documented by: VINH Non-Admin Reason: IV Running Labs CBC & Chem 7: 07/15/21 06:19 07/15/21 06:19 Labs: Laboratory Results - last 24 hr 07/14/21 07/14/21 07/14/21 12:33 18:50 18:50 MCV 85.8 MCH 28.2 MCHC 32.9 RDW 14.6 Plt Count 166 MPV 11.4 Absolute Nucleated RBC 0.000 Nucleated RBC % (auto) 0.0 D-Dimer High Sensitivty 611 Anion Gap Estim Creat Clear Calc Estimated GFR POC Glucose 122 H Fasting Glucose Calcium Lactate Dehydrogenase C-Reactive Protein 07/15/21 07/15/21 07/15/21 06:19 06:19 06:19 MCV 84.7 MCH 27.5 MCHC 32.4 RDW 14.6 Plt Count 169 MPV 11.9 Absolute Nucleated RBC 0.000 Nucleated RBC % (auto) 0.0 D-Dimer High Sensitivty 533 Anion Gap 13 Estim Creat Clear Calc 103.9 Estimated GFR > 60 POC Glucose Fasting Glucose 152 H Calcium 9.1 Lactate Dehydrogenase 215 C-Reactive Protein 14.13 H Microbiology Microbiology Results: Microbiology 07/14/21 08:34 Blood Culture - Preliminary Blood - Venous No growth after 24 hours. 07/13/21 11:50 Blood Culture - Final Blood - Venous Coag negative Staphylococcus 07/13/21 11:50 Blood Culture - Preliminary Blood - Venous No growth after 24 hours. 07/14/21 07:28 Blood Culture - Final Blood - Venous Assessment and Plan (1) Acute respiratory failure with hypoxia: Status: Acute (2) Pneumonia due to 2019-nCoV: Status: Acute (3) Acute metabolic encephalopathy: Status: Acute Assessment and Plan: ?70M presented with hypoxia acute hypoxic respiratory failure and metabolic encephalopathy due to covid 19 decadron day 3 o2 for goal 90% - requiring high flow now dysphagia due to encephalopathy- npo for now Cannot take p.o. 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 Seroquel Start Haldol ATC and p.r.n. HCV no obvious advanced fibrosis history of etoh, alochol, tobacco dependence in remission dvt prophylaxis lovenox Full code: Discussed with HCP and will go ahead to the court for petition. Quality Stroke Does the patient have a stroke diagnosis?: No VTE Prior VTE?: No VTE Risk Level:: Medical - moderate - high VTE Device Contraindication: Treatment Not Indicated VTE Drug Contraindication: N/A - Med Ordered
--- NOTE | 2021-07-15 12:44 | MHC.CM.PN ---
per rounds pt s code staus in question ,guardianship needs to be amended if pt reamns a full code ,pt from [facility]
[2021-07-15] MEDS: Haloperidol Lactate 5 MG/ML VIAL 2 MG IVPUSH (13:28)
[2021-07-15] MEDS: Enoxaparin Sodium 40 MG/0.4 ML SYRINGE SUBCUT (15:34)
[2021-07-15] MEDS: Haloperidol Lactate 5 MG/ML VIAL IVPUSH (18:09)
[2021-07-15] MEDS: 0.9 % Sodium Chloride Flush 3 ML SYRINGE IVFLUSH (18:11)
[2021-07-16] VITALS (13 sets, daily range): BP systolic 129–174; BP diastolic 60–77; PULSE 55–81; RESP 17–22; TEMP 36.3–37; O2SAT 93–99
[2021-07-16] MEDS: Haloperidol Lactate 5 MG/ML VIAL IVPUSH ×4 (00:14→23:46)
[2021-07-16] MEDS: 0.9 % Sodium Chloride Flush 3 ML SYRINGE IVFLUSH ×3 (00:14→15:21)
[2021-07-16 07:29] LABS: Hematocrit 33.2 % (42.0-52.0); Hemoglobin 10.8 g/dl (14.0-18.0); Mean Corpuscular HGB Conc 32.5 g/dl (31.0-36.0); Mean Corpuscular Hemoglobin 27.3 pg (27.0-33.0); Mean Corpuscular Volume 84.1 fL (80.0-98.0); Mean Platelet Volume 12.1 fL (9.4-12.4); Platelet Count 144 X10*3/uL (160-400); Red Blood Count 3.95 X10*6/uL (4.60-5.80); Red Cell Distribution Width 14.5 % (11.0-16.0); White Blood Count 6.7 X10*3/uL (4.8-10.8)
[2021-07-16 07:59] LABS: Anion Gap 9 (12-20); Blood Urea Nitrogen 26 mg/dL (9-16); Calcium 8.5 mg/dL (8.4-10.2); Carbon Dioxide 26 mmol/L (22-29); Chloride 108 mmol/L (96-108); Creatinine Clr Calc Pharmacy 116.9; Estimated Glomerular Filt Rate > 60; Glucose Random 143 mg/dL (60-115); Sodium 139 mmol/L (135-145)
[2021-07-16] MEDS: dexAMETHasone sod phosphate 4 MG/ML VIAL 6 MG IVPUSH (08:46)
[2021-07-16] MEDS: Dextrose 5 % 1,000 ML 125 ML IVCONT (08:47)
--- NOTE | 2021-07-16 11:08 | MHC.SL.SWA ---
Speech Pathologist Impression: Pharyngeal Dysphagia Risk of Aspiration Due to: History of Pneumonia Reduced Cognition Dysphasia Diet Status: Upgrade Liquid Consistency and Strategies for Safe Swallow: Liquid Intake Recommendation: [place] Thick Liquid Intake Strategies: Small Sips Solid Food Consistency: Dietary Recommendations: Chopped/Advanced (NDD3) Additional Modifications to Solid Foods: Avoid combined consistencies (e.g. liquid/solid). Oral Medication Intake: Crushed with Puree Compensatory Strategies and Precautions to be Taken for Safe Swallow: Supervision While Eating and Drinking for Safe Swallow: Total Supervision (1:1) Foods to Avoid: Avoid combined consistencies (e.g. liquid/solid). Swallowing Recommended Treatments: Compens. Strategy Educat. Recommendation for Speech: Outpatient Speech Therapy Comment: Pt presents w/Oral Mech, Swallow Phases WNL, however consistently had clinical s/s aspiration on thin liquids. Recommend START diet of Chopped/Advanced (NDD3) w/NECTAR THICK liquids, w/ PILLS CRUSHED IN PUREE. Pt will need full assist currently to eat, due to restraints, and may need supervision if not restrained due to likely impulsivity. Diet recommendations sent via secure text to MD, Machine Rigger, Dietary, w/ request MD put in order as Pt advancing from NPO diet. MANAGER GOVERNMENT will follow while inpt., monitor toleration of diet, reassess swallow and advance diet if warranted. Frequency/Duration: M-F Date Range for Service Req: Timeline to reassess: Vp Digital Marketing Social Media And Crm Clinican/Clinical Fellow: No Supervisory Statement: I have reviewed and agree with the student/clinical fellow's documentation: N/A Speech Language Pathologist: Carrie Lechuga M.A., [facility]MANAGER GOVERNMENT
--- NOTE | 2021-07-16 11:37 | HO.PM.IMPN ---
Subjective Subjective Date of Service: 07/16/21 Interval History: Seen and evaluated this morning Mentation improved, making more eye contact but unable to provide any meaningful answers still in restraints Reported overnight restlessness Review of Systems Unable to obtain any meaningful complaints. Altered ,, nonverbal Physical Exam Vital Signs: Vital Signs: Last Vital Signs Temp 97.7 F 07/16/21 11:23 Pulse 75 07/16/21 11:23 Resp 18 07/16/21 11:23 BP 161/74 H 07/16/21 11:23 Pulse Ox 98 07/16/21 11:23 BMI result Body Mass Index 22.4 Const: Other: Constitutional : Altered mentation, restless, more interactive Neck : Normal inspection, Supple Cardiovascular : No JVP, no lower extremity edema Respiratory : Chest wall moving bilaterally, mildly tachypneic, on oxygen supplement of high flow Gastrointestinal: soft, lax, Normal bowel sounds, Non tender Skin : Warm, Dry Neurological : Altered, withdrawal from pain, nonverbal, GCS 12 Objective Data Active Medications Dexamethasone Sodium Phosphate (Dexamethasone Sod Phosphate 4 Mg/Ml Vial) 6 mg IVPUSH DAILY [facility] Last Admin: 07/16/21 08:46 Dose: 6 mg Documented by: SUKHDEV Enoxaparin Sodium (Enoxaparin Sodium 40 Mg/0.4 Ml Syringe) 40 mg SUBCUT Q24H [facility] Last Admin: 07/15/21 15:34 Dose: 40 mg Documented by: VINH Fluvoxamine Maleate (Fluvoxamine Maleate 50 Mg Tablet) 100 mg PO BID@0900,1700 [facility] Last Admin: 07/15/21 17:46 Dose: Not Given Documented by: VINH Non-Admin Reason: unable to take oral meds Haloperidol Lactate (Haloperidol Lactate 5 Mg/Ml Vial) 0.5 mg IVPUSH QSHIFT [facility] Last Admin: 07/16/21 08:44 Dose: 0.5 mg Documented by: SUKHDEV Dextrose (D5w) 1,000 mls @ 125 mls/hr IVCONT .Q8H [facility] Last Admin: 07/16/21 08:47 Dose: 125 mls/hr Documented by: SUKHDEV Omeprazole (Omeprazole 20 Mg Capsule.Dr) 20 mg PO BID@0630,1630 [facility] Last Admin: 07/16/21 06:26 Dose: Not Given Documented by: AARON Non-Admin Reason: NPO Pharmacy Consult (Consult Rx Vancomycin Dosing) 1 each MISCELLANE DAILY PRN PRN Reason: Consult order Pharmacy Consult (Consult Rx Perform Med Rec) 1 each MISCELLANE ONCE PRN PRN Reason: Consult order Pharmacy Consult (Consult Rx Vancomycin Dosing) 1 each MISCELLANE DAILY PRN PRN Reason: Consult order Quetiapine Fumarate (Quetiapine Fumarate 50 Mg Tablet) 50 mg PO DAILY [facility] Last Admin: 07/15/21 13:25 Dose: Not Given Documented by: VINH Non-Admin Reason: unable to take oral at this time. Sodium Chloride (0.9 % Sodium Chloride Flush 3 Ml Syringe) 3 ml IVFLUSH QSHIFT [facility] Last Admin: 07/16/21 08:46 Dose: 3 ml Documented by: SUKHDEV Labs CBC & Chem 7: 07/16/21 06:14 07/16/21 06:14 Labs: Laboratory Results - last 24 hr 07/16/21 07/16/21 06:14 06:14 MCV 84.1 MCH 27.3 MCHC 32.5 RDW 14.5 Plt Count 144 L MPV 12.1 Absolute Nucleated RBC 0.000 Nucleated RBC % (auto) 0.0 Anion Gap 9 L Estim Creat Clear Calc 116.9 Estimated GFR > 60 Random Glucose 143 H Calcium 8.5 D Microbiology Microbiology Results: Microbiology 07/14/21 08:34 Blood Culture - Preliminary Blood - Venous No growth after 48 hours. 07/13/21 11:50 Blood Culture - Preliminary Blood - Venous No growth after 48 hours. 07/13/21 11:50 Blood Culture - Final Blood - Venous Coag negative Staphylococcus Assessment and Plan (1) Acute metabolic encephalopathy: Status: Acute (2) Acute respiratory failure with hypoxia: Status: Acute (3) Pneumonia due to 2019-nCoV: Status: Acute Assessment and Plan: ?70[facility] [place], was sent in for hypoxia, patient was noted to be tachypneic, saturating 84% on room air, refusing to wear oxygen, sent to ED. 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 Seroquel Resume low-dose Haldol for today HCV no obvious advanced fibrosis history of etoh, alochol, tobacco dependence in remission dvt prophylaxis lovenox Full code: Discussed with HCP and will go ahead to the court for petition to change status to DNR DNI Quality Stroke Does the patient have a stroke diagnosis?: No VTE Prior VTE?: No VTE Risk Level:: Medical - moderate - high VTE Device Contraindication: Treatment Not Indicated VTE Drug Contraindication: N/A - Med Ordered
[2021-07-16] MEDS: fluvoxaMINE Maleate 50 MG TABLET 100 MG PO ×2 (12:40→15:20)
[2021-07-16] MEDS: Enoxaparin Sodium 40 MG/0.4 ML SYRINGE SUBCUT (12:41)
[2021-07-16] MEDS: QUEtiapine Fumarate 50 MG TABLET PO (12:41)
--- NOTE | 2021-07-16 16:29 | PC.NURSE ---
Pt del real removed 16:00. External [place] catheter placed for incontinence / maintaining skin integrity. Initiated voiding trial and due to void 22:00 07/16/21. Will monitor output.
[2021-07-16] MEDS: Dextrose 5 % 1,000 ML 75 ML IVCONT (18:16)
[2021-07-17] VITALS (15 sets, daily range): BP systolic 125–160; BP diastolic 61–87; PULSE 58–78; RESP 16–24; TEMP 36.1–37.3; O2SAT 91–97
[2021-07-17 07:34] LABS: Anion Gap 9 (12-20); Blood Urea Nitrogen 23 mg/dL (9-16); Calcium 8.6 mg/dL (8.4-10.2); Carbon Dioxide 24 mmol/L (22-29); Chloride 107 mmol/L (96-108); Creatinine Clr Calc Pharmacy 116.9; Estimated Glomerular Filt Rate > 60; Glucose Random 123 mg/dL (60-115); Potassium 3.7 mmol/L (3.3-5.1); Sodium 136 mmol/L (135-145)
[2021-07-17] MEDS: fluvoxaMINE Maleate 50 MG TABLET 100 MG PO (08:29)
[2021-07-17] MEDS: dexAMETHasone sod phosphate 4 MG/ML VIAL 6 MG IVPUSH (08:29)
[2021-07-17] MEDS: QUEtiapine Fumarate 50 MG TABLET PO (08:30)
[2021-07-17] MEDS: 0.9 % Sodium Chloride Flush 3 ML SYRINGE IVFLUSH ×3 (08:30→14:31)
--- NOTE | 2021-07-17 12:15 | MHC.CM.PN ---
Per ROUNDS discussion, Patient is not yet medically cleared for dc (IV Decadron, high flow O2); Returning to LTC at [facility] is the goal and CM will continue to follow for dc planning.
--- NOTE | 2021-07-17 12:39 | P.PNIM_ITS ---
Subjective Subjective Date of Service: 07/17/21 Interval History: Seen and evaluated this morning Mentation worse, more sleeping and less responsive still in restraints as he keeps trying to remove the high-flow oxygen whenever other taken of Reported overnight restlessness Review of Systems Unable to obtain any meaningful complaints. Altered ,, nonverbal Physical Exam Vital Signs: Vital Signs: Last Vital Signs Temp 98.8 F 07/17/21 11:59 Pulse 72 07/17/21 11:59 Resp 18 07/17/21 11:59 BP 142/71 H 07/17/21 11:59 Pulse Ox 94 07/17/21 11:59 BMI result Body Mass Index 22.4 Const: Other: Constitutional : Altered mentation, restless, less interactive Neck : Normal inspection, Supple Cardiovascular : No JVP, no lower extremity edema Respiratory : Chest wall moving bilaterally, mildly tachypneic, on oxygen supplement of high flow Gastrointestinal: soft, lax, Normal bowel sounds, Non tender Skin : Warm, Dry Neurological : Altered, withdrawal from pain, nonverbal, GCS 8 Objective Data Active Medications Baricitinib (Baricitinib 2 Mg Tablet) 4 mg PO Q24H [facility] Stop: 07/29/21 12:16 Last Admin: 07/16/21 12:40 Dose: 4 mg Documented by: SUKHDEV Dexamethasone Sodium Phosphate (Dexamethasone Sod Phosphate 4 Mg/Ml Vial) 6 mg IVPUSH DAILY [facility] Last Admin: 07/17/21 08:29 Dose: 6 mg Documented by: DESTINEY Enoxaparin Sodium (Enoxaparin Sodium 40 Mg/0.4 Ml Syringe) 40 mg SUBCUT Q24H [facility] Last Admin: 07/16/21 12:41 Dose: 40 mg Documented by: SUKHDEV Fluvoxamine Maleate (Fluvoxamine Maleate 50 Mg Tablet) 100 mg PO BID@0900,1700 [facility] Last Admin: 07/17/21 08:29 Dose: 100 mg Documented by: DESTINEY Omeprazole (Omeprazole 20 Mg Capsule.) 20 mg PO BID@0630,1630 [facility] Last Admin: 07/17/21 06:23 Dose: Not Given Documented by: LYNDSEY Non-Admin Reason: pt unable to swallow pill Pharmacy Consult (Consult Rx Vancomycin Dosing) 1 each MISCELLANE DAILY PRN PRN Reason: Consult order Pharmacy Consult (Consult Rx Perform Med Rec) 1 each MISCELLANE ONCE PRN PRN Reason: Consult order Pharmacy Consult (Consult Rx Vancomycin Dosing) 1 each MISCELLANE DAILY PRN PRN Reason: Consult order Quetiapine Fumarate (Quetiapine Fumarate 50 Mg Tablet) 12.5 mg PO BID [facility] Sodium Chloride (0.9 % Sodium Chloride Flush 3 Ml Syringe) 3 ml IVFLUSH QSHIFT [facility] Last Admin: 07/17/21 08:30 Dose: 3 ml Documented by: DESTINEY Labs CBC & Chem 7: 07/16/21 06:14 07/17/21 07:06 Labs: Laboratory Results - last 24 hr 07/17/21 07:06 Anion Gap 9 L Estim Creat Clear Calc 116.9 Estimated GFR > 60 Random Glucose 123 H Calcium 8.6 Microbiology Microbiology Results: Microbiology 07/14/21 08:34 Blood Culture - Preliminary Blood - Venous No growth after 48 hours. Assessment and Plan (1) Acute metabolic encephalopathy: Status: Acute (2) Acute respiratory failure with hypoxia: Status: Acute Assessment and Plan: ?70[facility] [place], was sent in for hypoxia, patient was noted to be tachypneic, saturating 84% on room air, refusing to wear oxygen, sent to ED. 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
[2021-07-17] MEDS: Enoxaparin Sodium 40 MG/0.4 ML SYRINGE SUBCUT (14:27)
--- NOTE | 2021-07-17 15:26 | MHC.SL.SWA ---
Speech Pathologist Impression: Pharyngeal Dysphagia Risk of Aspiration Due to: History of Pneumonia Reduced Cognition Dysphasia Diet Status: No Change Liquid Consistency and Strategies for Safe Swallow: Liquid Intake Recommendation: [place] Thick Liquid Intake Strategies: Small Sips Solid Food Consistency: Dietary Recommendations: Chopped/Advanced (NDD3) Additional Modifications to Solid Foods: Avoid combined consistencies (e.g. liquid/solid). Limited PO trials today d/t lethargy. Patient is on CHOPPED/ADVANCED (NDD3) solids and NECTAR THICK liquids, pills CRUSHED in PUREE. Recommend aspiration precautions and 1:1 assistance for PO intake. Patient must be awake and alert for meals. Tray may need to be withheld d/t lethargy. FLATBED PRESS OPERATOR will continue to follow. Oral Medication Intake: Crushed with Puree Compensatory Strategies and Precautions to be Taken for Safe Swallow: Sitting Upright (90 deg) Small Bites and Sips Alternate Liquids/Solids Rate of Ingestion Change Oral Check Avoid Specific Foods Supervision While Eating and Drinking for Safe Swallow: Total Assistance Foods to Avoid: Avoid combined consistencies (e.g. liquid/solid). Swallowing Recommended Treatments: Compens. Strategy Educat. Recommendation for Speech: Outpatient Speech Therapy Soaker Soda Worker Clinican/Clinical Fellow: No Supervisory Statement: I have reviewed and agree with the student/clinical fellow's documentation: N/A Speech Language Pathologist: Wendy Rogers M.A., CCC-FLATBED PRESS OPERATOR
--- NOTE | 2021-07-17 18:15 | PC.NURSE ---
Removed soft restraints 1045am successfully. Pt does still pull off mask, condom cath and shirt time to time but rounder outside room and RN to reorient pt and place back on hiflo. Tele sitter also in place. Pt was able to take med crushes in pudding this am but this afternoon more coughing with any food so wasnt able to safely get afternoon PO admin. Speech closely following.
[2021-07-18] VITALS (9 sets, daily range): BP systolic 136–166; BP diastolic 67–86; PULSE 62–107; RESP 18–28; TEMP 36.1–37.3; O2SAT 88–96
[2021-07-18] MEDS: 0.9 % Sodium Chloride Flush 3 ML SYRINGE IVFLUSH ×2 (00:32→07:59)
[2021-07-18 07:43] LABS: Hematocrit 43.7 % (42.0-52.0); Hemoglobin 14.2 g/dl (14.0-18.0); Mean Corpuscular HGB Conc 32.5 g/dl (31.0-36.0); Mean Corpuscular Hemoglobin 27.9 pg (27.0-33.0); Mean Corpuscular Volume 85.9 fL (80.0-98.0); Mean Platelet Volume 12.3 fL (9.4-12.4); Platelet Count 142 X10*3/uL (160-400); Red Blood Count 5.09 X10*6/uL (4.60-5.80); Red Cell Distribution Width 14.4 % (11.0-16.0); White Blood Count 12.3 X10*3/uL (4.8-10.8)
[2021-07-18] MEDS: fluvoxaMINE Maleate 50 MG TABLET 100 MG PO (07:50)
[2021-07-18] MEDS: dexAMETHasone sod phosphate 4 MG/ML VIAL 6 MG IVPUSH (07:50)
[2021-07-18 10:31] LABS: Anion Gap 15 (12-20); Blood Urea Nitrogen 22 mg/dL (9-16); Calcium 8.3 mg/dL (8.4-10.2); Carbon Dioxide 17 mmol/L (22-29); Chloride 111 mmol/L (96-108); Creatinine Clr Calc Pharmacy 111.7; Estimated Glomerular Filt Rate > 60; Glucose Random 113 mg/dL (60-115); Potassium 4.1 mmol/L (3.3-5.1); Sodium 139 mmol/L (135-145)
[2021-07-18] MEDS: Dextrose 5 % and 0.9 % NaCl 1,000 ML 50 ML IVCONT (10:35)
--- NOTE | 2021-07-18 11:52 | HO.PM.IMPN ---
Subjective Subjective Date of Service: 07/18/21 Interval History: Seen and evaluated this morning Laying in the bed on high-flow oxygen, not responsive Restraints taken of Reported overnight restlessness Review of Systems Unable to obtain any meaningful complaints. Altered ,, nonverbal Physical Exam Vital Signs: Vital Signs: Last Vital Signs Temp 97.4 F 07/18/21 11:45 Pulse 87 07/18/21 11:45 Resp 20 07/18/21 11:45 BP 166/75 H 07/18/21 11:45 Pulse Ox 92 07/18/21 11:45 BMI result Body Mass Index 22.4 Const: Other: Constitutional : Altered mentation,Less restless, less interactive Neck : Normal inspection, Supple Cardiovascular : No JVP, no lower extremity edema Respiratory : Chest wall moving bilaterally, mildly tachypneic, on oxygen supplement of high flow Gastrointestinal: soft, lax, Normal bowel sounds, Non tender Skin : Warm, Dry Neurological : Altered, nonverbal, GCS 8 Objective Data Active Medications Baricitinib (Baricitinib 2 Mg Tablet) 4 mg PO Q24H [facility] Stop: 07/29/21 12:16 Last Admin: 07/17/21 12:54 Dose: Not Given Documented by: DESTINEY Non-Admin Reason: pt unable to emeka PO at this moment Dexamethasone Sodium Phosphate (Dexamethasone Sod Phosphate 4 Mg/Ml Vial) 6 mg IVPUSH DAILY [facility] Last Admin: 07/18/21 07:50 Dose: 6 mg Documented by: NALDO Enoxaparin Sodium (Enoxaparin Sodium 40 Mg/0.4 Ml Syringe) 40 mg SUBCUT Q24H [facility] Last Admin: 07/17/21 14:27 Dose: 40 mg Documented by: DESTINEY Fluvoxamine Maleate (Fluvoxamine Maleate 50 Mg Tablet) 100 mg PO BID@0900,1700 [facility] Last Admin: 07/18/21 07:50 Dose: 100 mg Documented by: NALDO Dextrose/Sodium Chloride (D5ns) 1,000 mls @ 50 mls/hr IVCONT .Q20H [facility] Last Admin: 07/18/21 10:35 Dose: 50 mls/hr Documented by: NALDO Omeprazole (Omeprazole 20 Mg Capsule.Dr) 20 mg PO BID@0630,1630 [facility] Last Admin: 07/18/21 06:22 Dose: Not Given Documented by: MAYRA Non-Admin Reason: Patient Refused Pharmacy Consult (Consult Rx Vancomycin Dosing) 1 each MISCELLANE DAILY PRN PRN Reason: Consult order Pharmacy Consult (Consult Rx Perform Med Rec) 1 each MISCELLANE ONCE PRN PRN Reason: Consult order Pharmacy Consult (Consult Rx Vancomycin Dosing) 1 each MISCELLANE DAILY PRN PRN Reason: Consult order Quetiapine Fumarate (Quetiapine Fumarate 50 Mg Tablet) 12.5 mg PO BID [facility] Sodium Chloride (0.9 % Sodium Chloride Flush 3 Ml Syringe) 3 ml IVFLUSH QSHIFT [facility] Last Admin: 07/18/21 07:59 Dose: 3 ml Documented by: NALDO Labs CBC & Chem 7: 07/18/21 06:52 07/18/21 09:48 Labs: Laboratory Results - last 24 hr 07/18/21 07/18/21 06:52 09:48 MCV 85.9 MCH 27.9 MCHC 32.5 RDW 14.4 Plt Count 142 L MPV 12.3 Absolute Nucleated RBC 0.000 Nucleated RBC % (auto) 0.0 Anion Gap 15 Estim Creat Clear Calc 111.7 Estimated GFR > 60 Random Glucose 113 Calcium 8.3 L Assessment and Plan (1) Acute metabolic encephalopathy: Status: Acute (2) Acute respiratory failure with hypoxia: Status: Acute (3) TBI (traumatic brain injury): Status: Acute Assessment and Plan: ?70[facility] [place], was sent in for hypoxia, patient was noted to be tachypneic, saturating 84% on room air, refusing to wear oxygen, sent to ED. 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
[2021-07-18] MEDS: Enoxaparin Sodium 40 MG/0.4 ML SYRINGE SUBCUT (14:04)
[2021-07-19] VITALS (13 sets, daily range): BP systolic 130–160; BP diastolic 63–91; PULSE 53–75; RESP 18–25; TEMP 35.9–36.9; O2SAT 89–97
[2021-07-19] MEDS: 0.9 % Sodium Chloride Flush 3 ML SYRINGE IVFLUSH ×3 (01:01→19:36)
[2021-07-19] MEDS: Dextrose 5 % and 0.9 % NaCl 1,000 ML 50 ML IVCONT ×2 (01:06→09:03)
--- NOTE | 2021-07-19 03:47 | PC.NURSE ---
awake and alert, speech garbled and minimal. appears comfortable no distress.
[2021-07-19] MEDS: dexAMETHasone sod phosphate 4 MG/ML VIAL 6 MG IVPUSH (09:12)
--- NOTE | 2021-07-19 10:58 | HO.PM.IMPN ---
Subjective Subjective Date of Service: 07/19/21 Interval History: f/u on covid with severe hypoxia, encephalopathy, non verbal decrease responsiveness Review of Systems Review of Systems: Yes Unobtainable due to mental status Respiratory Respiratory: Reports as per [facility] Physical Exam Vital Signs: Vital Signs: Last Vital Signs Temp 96.6 F L 07/19/21 07:43 Pulse 57 07/19/21 07:43 Resp 22 H 07/19/21 08:51 BP 141/65 H 07/19/21 07:43 Pulse Ox 89 L 07/19/21 07:43 BMI result Body Mass Index 22.4 Const: Other: Constitutional : Altered mentation,Less restless, less interactive Neck : Normal inspection, Supple Cardiovascular : No JVP, no lower extremity edema Respiratory : Chest wall moving bilaterally, mildly tachypneic, on oxygen supplement of high flow Gastrointestinal: soft, lax, Normal bowel sounds, Non tender Skin : Warm, Dry Neurological : Altered, nonverbal, GCS 8 Objective Data Active Medications Baricitinib (Baricitinib 2 Mg Tablet) 4 mg PO Q24H [facility] Stop: 07/29/21 12:16 Last Admin: 07/18/21 13:36 Dose: Not Given Documented by: NALDO Non-Admin Reason: unable to swallow Dexamethasone Sodium Phosphate (Dexamethasone Sod Phosphate 4 Mg/Ml Vial) 6 mg IVPUSH DAILY [facility] Last Admin: 07/19/21 09:12 Dose: 6 mg Documented by: NALDO Enoxaparin Sodium (Enoxaparin Sodium 40 Mg/0.4 Ml Syringe) 40 mg SUBCUT Q24H [facility] Last Admin: 07/18/21 14:04 Dose: 40 mg Documented by: NALDO Fluvoxamine Maleate (Fluvoxamine Maleate 50 Mg Tablet) 100 mg PO BID@0900,1700 [facility] Last Admin: 07/19/21 09:14 Dose: Not Given Documented by: NALDO Non-Admin Reason: swallow Dextrose/Sodium Chloride (D5ns) 1,000 mls @ 50 mls/hr IVCONT .Q20H [facility] Last Admin: 07/19/21 09:03 Dose: 50 mls/hr Documented by: NALDO Omeprazole (Omeprazole 20 Mg Jacob.) 20 mg PO BID@0630,1630 [facility] Last Admin: 07/19/21 05:48 Dose: Not Given Documented by: JESSENIA Non-Admin Reason: not following directions Pharmacy Consult (Consult Rx Vancomycin Dosing) 1 each MISCELLANE DAILY PRN PRN Reason: Consult order Pharmacy Consult (Consult Rx Perform Med Rec) 1 each MISCELLANE ONCE PRN PRN Reason: Consult order Pharmacy Consult (Consult Rx Vancomycin Dosing) 1 each MISCELLANE DAILY PRN PRN Reason: Consult order Quetiapine Fumarate (Quetiapine Fumarate 50 Mg Tablet) 12.5 mg PO BID [facility] Last Admin: 07/19/21 10:23 Dose: Not Given Documented by: NALDO Non-Admin Reason: swallow Sodium Chloride (0.9 % Sodium Chloride Flush 3 Ml Syringe) 3 ml IVFLUSH QSHIFT [facility] Last Admin: 07/19/21 09:10 Dose: Not Given Documented by: NALDO Non-Admin Reason: IV Running Labs CBC & Chem 7: 07/18/21 06:52 07/18/21 09:48 Microbiology Microbiology Results: Microbiology 07/14/21 08:34 Blood Culture - Final Blood - Venous No growth after 5 days. 07/13/21 11:50 Blood Culture - Final Blood - Venous No growth after 5 days. Assessment and Plan (1) Acute metabolic encephalopathy: Status: Acute (2) Acute respiratory failure with hypoxia: Status: Acute (3) Alzheimer disease: Status: Acute Assessment and Plan: ?70[facility] [place], was sent in for hypoxia, patient was noted to be tachypneic, saturating 84% on room air, refusing to wear oxygen, sent to ED. acute hypoxic respiratory failure due to covid 19 decadron day 7 o2 for goal 90% - requiring high flow now Continue dexamethasone Continue Baricitinib day 4 If unable to maintain O2 sat will need to be transfer to the ICU hypernatremia Resolved Monitor BMP Dehydration Decreased oral intake, risk of aspiration presenty responsive enought to tolerated oral diet Metabolic encephalopathy Underlying TBI, infection, medicationsmind HCV no obvious advanced fibrosis history of etoh, alochol, tobacco dependence in remission dvt prophylaxis lovenox Full code: Discussed with HCP and will go ahead to the court for petition to change status to DNR DNI, but could decompensate in the interim and ideally should DNR and probably comfort care at this point Quality Stroke Does the patient have a stroke diagnosis?: No VTE Prior VTE?: No VTE Risk Level:: Medical - moderate - high VTE Device Contraindication: Treatment Not Indicated VTE Drug Contraindication: N/A - Med Ordered
[2021-07-19 15:45] LABS: Anion Gap 11 (12-20); Blood Urea Nitrogen 20 mg/dL (9-16); C Reactive Protein 9.73 mg/dL (< or = 0.50); Calcium 8.5 mg/dL (8.4-10.2); Carbon Dioxide 22 mmol/L (22-29); Chloride 113 mmol/L (96-108); Creatinine Clr Calc Pharmacy 113.3; Estimated Glomerular Filt Rate > 60; Glucose Random 156 mg/dL (60-115); Lactate Dehydrogenase 241 U/L (118-273); Potassium 3.9 mmol/L (3.3-5.1); Sodium 142 mmol/L (135-145)
[2021-07-19] MEDS: Enoxaparin Sodium 40 MG/0.4 ML SYRINGE SUBCUT (16:47)
[2021-07-20] VITALS (7 sets, daily range): BP systolic 129–167; BP diastolic 58–76; PULSE 67–93; RESP 16–20; TEMP 36.1–36.3; O2SAT 90–94
[2021-07-20] MEDS: Dextrose 5 % and 0.9 % NaCl 1,000 ML 50 ML IVCONT ×2 (03:08→20:26)
[2021-07-20] MEDS: dexAMETHasone sod phosphate 4 MG/ML VIAL 6 MG IVPUSH (09:55)
[2021-07-20] MEDS: 0.9 % Sodium Chloride Flush 3 ML SYRINGE IVFLUSH ×3 (10:05→20:27)
--- NOTE | 2021-07-20 10:57 | P.PNIM_ITS ---
Subjective Subjective Date of Service: 07/20/21 Interval History: f/u on covid with severe hypoxia, encephalopathy, non verbal decrease responsiveness. He seemed more alert and wake today, transitioned to nasal canula Review of Systems Review of Systems: Yes Unobtainable due to mental status Physical Exam Vital Signs: Vital Signs: Last Vital Signs Temp 97.4 F 07/20/21 08:00 Pulse 67 07/20/21 08:00 Resp 16 07/20/21 08:00 BP 133/58 L 07/20/21 08:00 Pulse Ox 90 L 07/20/21 08:00 BMI result Body Mass Index 22.4 Const: Other: Constitutional : Altered mentation,Less restless, less inter active Neck : Normal inspection, Supple Cardiovascular : No JVP, no lower extremity edema Respiratory : Chest wall moving bilaterally, mildly tachypneic, on oxygen supplement of high flow Gastrointestinal: soft, lax, Normal bowel sounds, Non tender Skin : Warm, Dry Neurological : Altered, nonverbal at baseline Objective Data Active Medications Baricitinib (Baricitinib 2 Mg Tablet) 4 mg PO Q24H [facility] Stop: 07/29/21 12:16 Last Admin: 07/19/21 14:36 Dose: Not Given Documented by: NALDO Non-Admin Reason: swallow Dexamethasone Sodium Phosphate (Dexamethasone Sod Phosphate 4 Mg/Ml Vial) 6 mg IVPUSH DAILY [facility] Last Admin: 07/20/21 09:55 Dose: 6 mg Documented by: CHAYITO Enoxaparin Sodium (Enoxaparin Sodium 40 Mg/0.4 Ml Syringe) 40 mg SUBCUT Q24H [facility] Last Admin: 07/19/21 16:47 Dose: 40 mg Documented by: CLAYTON Fluvoxamine Maleate (Fluvoxamine Maleate 50 Mg Tablet) 100 mg PO BID@0900,1700 [facility] Last Admin: 07/20/21 10:05 Dose: Not Given Documented by: CHAYITO Non-Admin Reason: NPO Dextrose/Sodium Chloride (D5ns) 1,000 mls @ 50 mls/hr IVCONT .Q20H [facility] Last Admin: 07/20/21 03:08 Dose: 50 mls/hr Documented by: NEVA Omeprazole (Omeprazole 20 Mg Capsule.) 20 mg PO BID@0630,1630 [facility] Last Admin: 07/20/21 04:34 Dose: Not Given Documented by: YOUSIF Non-Admin Reason: See Note Pharmacy Consult (Consult Rx Vancomycin Dosing) 1 each MISCELLANE DAILY PRN PRN Reason: Consult order Pharmacy Consult (Consult Rx Perform Med Rec) 1 each MISCELLANE ONCE PRN PRN Reason: Consult order Pharmacy Consult (Consult Rx Vancomycin Dosing) 1 each MISCELLANE DAILY PRN PRN Reason: Consult order Quetiapine Fumarate (Quetiapine Fumarate 50 Mg Tablet) 12.5 mg PO BID [facility] Last Admin: 07/20/21 10:05 Dose: Not Given Documented by: CHAYITO Non-Admin Reason: NPO Sodium Chloride (0.9 % Sodium Chloride Flush 3 Ml Syringe) 3 ml IVFLUSH QSHIFT [facility] Last Admin: 07/20/21 10:05 Dose: 3 ml Documented by: CHAYITO Labs CBC & Chem 7: 07/18/21 06:52 07/19/21 14:57 Labs: Laboratory Results - last 24 hr 07/19/21 14:57 Anion Gap 11 L Estim Creat Clear Calc 113.3 Estimated GFR > 60 Random Glucose 156 H D Calcium 8.5 Lactate Dehydrogenase 241 C-Reactive Protein 9.73 H Microbiology Microbiology Results: Microbiology 07/14/21 08:34 Blood Culture - Final Blood - Venous No growth after 5 days. Assessment and Plan (1) Acute metabolic encephalopathy: Status: Acute (2) Acute respiratory failure with hypoxia: Status: Acute (3) Alzheimer disease: Status: Acute Assessment and Plan: ?70[facility] [place], was sent in for hypoxia, patient was noted to be tachypneic, saturating 84% on room air, refusing to wear oxygen, sent to ED. acute hypoxic respiratory failure due to covid 19 o2 for goal 90% -off high flow Continue dexamethasone D8 Continue Baricitinib day 5 If unable to maintain O2 sat will need to be transfer to the but ICU but so far doing ok hypernatremia Resolved Monitor BMP Dehydration Decreased oral intake, risk of aspiration presenty responsive enought to tolerated oral diet Metabolic encephalopathy Underlying TBI, infection, medicationsmind HCV no obvious advanced fibrosis history of etoh, alochol, tobacco dependence in remission Speech to assess swallow dvt prophylaxis lovenox Full code: Discussed with HCP and will go ahead to the court for petition to change status to DNR DNI, but could decompensate in the interim and ideally should DNR and probably comfort care at this point Quality Stroke Does the patient have a stroke diagnosis?: No VTE Prior VTE?: No VTE Risk Level:: Medical - moderate - high VTE Device Contraindication: Treatment Not Indicated VTE Drug Contraindication: N/A - Med Ordered
[2021-07-20] MEDS: fluvoxaMINE Maleate 50 MG TABLET 100 MG PO ×2 (11:52→17:35)
[2021-07-20] MEDS: QUEtiapine Fumarate 50 MG TABLET 12.5 MG PO (11:56)
--- NOTE | 2021-07-20 15:05 | MHC.SLORD ---
Speech Language Pathology Order Status: Patient would not wake to verbal stimuli. Patient awoke momentarily with sternal rub and change in position, but would not remain awake more than a few seconds. Not appropriate for dysphagia evaluation at this time d/t lethargy. Will attempt tomorrow morning.
[2021-07-20] MEDS: Enoxaparin Sodium 40 MG/0.4 ML SYRINGE SUBCUT (15:33)
[2021-07-20] MEDS: Omeprazole 20 MG CAPSULE.DR PO (15:34)
[2021-07-21] VITALS (28 sets, daily range): BP systolic 50–145; BP diastolic 30–80; PULSE 87–140; RESP 14–40; TEMP 34.9–38.5; O2SAT 81–97; BMI 22.4
[2021-07-21] MEDS: Morphine Sulfate 2 MG/ML CARTRIDGE 1 MG IVPUSH (03:38)
[2021-07-21 04:07] LABS: ABG Base Excess -4.7 mmol/L; ABG HCO3 16 mmol/L (22-26); ABG pCO2 20 mmHg (32-45); ABG pCO2 TC 19 mmHg (32-45); ABG pH TC 7.51 (7.35-7.45); ABG pO2 65 mmHg (83-108); ABG pO2 TC 64 (83-108)
[2021-07-21 04:07] LABS: ABG Refer to POC result
--- NOTE | 2021-07-21 04:35 | PM.EVENT ---
Event Note Date of Service: 07/21/21 Event Note: Acute hypoxic respiratory failure: Patient was having dinner and suddenly appears to be aspirated and became acutely hypoxic; prior to that patient was on 5 L of nasal cannula; transitioned to high-flow nasal cannula non-rebreather; patient was tachypneic, tachycardic, blood pressure of 114/74. On exam patient appears to be in mild respiratory distress; no food noted in his mouth; equal chest expansion equal air entry noted. Chest x-ray ABGs pending. Discussed with ICU Dr. Oseguera; his team evaluated the patient and accepted to the ICU.
--- NOTE | 2021-07-21 04:44 | PC.NURSE ---
Pt maintaining O2 stats on 5L NC throughout the night. At appx 0320 became tachy 130s, RR 32, O2 requirements increased from 5L NC to 100% hiflo. MD up to bedside. Chest xray, ABGs ordered. 1x dose IVP 1mg morphine given. ICU consult. Concern for aspiration as pt choked on dinner on previous shift. Deep suction with no aspirate. Transferred to ICU.
[2021-07-21] MEDS: Midazolam HCl/PF 2 MG/2 ML VIAL 8 MG IM (05:03)
[2021-07-21] MEDS: propofoL 200 MG/20 ML VIAL 30 MG IVPUSH (05:13)
[2021-07-21] MEDS: propofoL 1,000 MG/100 ML VIAL 8.98 MG IVCONT ×2 (05:14→14:49)
[2021-07-21] MEDS: EPINEPHrine 1 MG/10 ML SYRINGE IVPUSH (05:19)
[2021-07-21] MEDS: Calcium Chloride 1 GM/10 ML SYRINGE IVPUSH (05:19)
--- NOTE | 2021-07-21 06:29 | W.PM.CCHP ---
Procedures Date of Service Date of Service: 07/21/21 Intubation Intubation Comments: Patient with acute respiratory distress, requiring emergent intubation for hypoxemia. Patient intubated with 7.5 cuffed ET tube under glide scope guidance with visualization of vocal cords, without immediate complications. ET tube position verified with Chest XRAY. Consent for Procedure: Emergent-no informed consent obtained Sedative: ketamine (IM ) Mg given: 100 Laryngoscope: fiber optic video scope ET tube size: 7.5 Tube secured depth (cm): 25 Tube secured location: lips Tube placement confirmation: visualized tube passing through cords, equal breath sounds bilaterally, no breath sounds over epigastrium and confirmation by capnometry Patient tolerated procedure: well and no complications Intubation complications: none
--- NOTE | 2021-07-21 06:49 | W.PM.CCHP ---
Procedures Date of Service Date of Service: 07/21/21 Central Line Placement Right IJ: Central Line Comments: Right internal jugular triple-lumen central venous catheter emergently placed for vasopressor support under ultrasound guidance and usual sterile conditions with no immediate complications. Line position verified on chest x-ray.
[2021-07-21] MEDS: Ketamine HCl 500 MG/5 ML VIAL 100 MG IM (06:58)
[2021-07-21] MEDS: Ketamine HCl 500 MG in 0.9 % Sodium Chloride 250 ML 15.27 MG IVCONT (06:59)
[2021-07-21] MEDS: 0.9 % Sodium Chloride Flush 3 ML SYRINGE IVFLUSH (06:59)
--- NOTE | 2021-07-21 07:01 | PC.NURSE ---
Pt to ICU at 0445. Pt maintaining spO2 80s on nrb. Decision to intubate. No IV access, 100 mg IM ketamine and 8 mg IM versed given. Additional 4 mg IM ativan given. Intubated at 0510, ET tube #7.5, 25 cm at the lip. IV access obtained, 30 mg IV propofol given, propofol gtt started at 20 mcg/kg/min. At 0515 BP 57/32 1 mg IV epi and 1 amp calcium chloride given. Levophed started, see mar titration. At 0544 ET cuff losing air, ET tube changed, tube remains #7.5 25 cm at lip. Vent settings ACVC, see vent assessment bundle.
[2021-07-21] MEDS: fentaNYL citrate/NS 1,000 MCG/100 ML PLAST..BAG 5 MCG IVCONT (07:48)
[2021-07-21 07:58] LABS: VBG Base Excess -7.7 mmol/L; VBG HCO3 18 mmol/L (22-26); VBG pCO2 40 mmHg; VBG pH 7.26 (7.32-7.43); VBG pO2 50 mmHg
[2021-07-21 08:04] LABS: Basophils Absolute Auto 0.1 X10*3/uL (0.0-0.2); Basophils Percent Auto 0.3 % (0-2); Hematocrit 37.3 % (42.0-52.0); Imm Gran Abs Auto 0.41 X10*3/uL (0.00-0.03); Imm Gran Pct Auto 1.2 % (0.0-0.4); Lymphocytes Absolute Auto 0.5 X10*3/uL (1.2-4.9); Lymphocytes Percent Auto 1.3 % (20-40); MANUAL DIFF FLAG SCAN; Mean Corpuscular HGB Conc 32.2 g/dl (31.0-36.0); Mean Corpuscular Hemoglobin 27.7 pg (27.0-33.0); Mean Corpuscular Volume 86.1 fL (80.0-98.0); Monocytes Absolute Auto 0.8 X10*3/uL (0.1-1.2); Monocytes Percent Auto 2.2 % (2-11); Neutrophils Absolute Auto 32.8 x10*3/uL (2.0-8.3); Platelet Count 321 X10*3/uL (160-400); Red Blood Count 4.33 X10*6/uL (4.60-5.80); Red Cell Distribution Width 14.6 % (11.0-16.0); SCAN SMEAR FLAG 1; Venous Blood Gas Refer to POC result
[2021-07-21 08:06] LABS: White Blood Count 34.5 X10*3/uL (4.8-10.8)
[2021-07-21 08:23] LABS: Alanine Aminotransferase 40 U/L (0-40); Alkaline Phosphatase 60 U/L (39-117); Anion Gap 15 (12-20); Aspartate Amino Transferase 32 U/L (5-37); Bilirubin Total 0.8 mg/dL (0.0-1.0); Blood Urea Nitrogen 23 mg/dL (9-16); Carbon Dioxide 20 mmol/L (22-29); Chloride 116 mmol/L (96-108); Creatinine Clr Calc Pharmacy 75.5; Estimated Glomerular Filt Rate > 60; Glucose Random 118 mg/dL (60-115); Magnesium 2.3 mg/dL (1.6-2.6); Phosphorus 4.4 mg/dL (2.7-4.5); Potassium 3.6 mmol/L (3.3-5.1); Sodium 147 mmol/L (135-145)
[2021-07-21 08:31] LABS: Albumin Level 2.9 g/dL (3.5-5.0); Calcium 10.1 mg/dL (8.4-10.2); Total Protein 6.1 g/dL (6.5-8.0)
[2021-07-21] MEDS: Cisatracurium Besylate 20 MG/10 ML VIAL IVPUSH (08:40)
[2021-07-21 08:46] LABS: SLIDE REVIEW VERIFIED
[2021-07-21] MEDS: dexAMETHasone sod phosphate 4 MG/ML VIAL 6 MG IVPUSH (09:13)
[2021-07-21] MEDS: fluvoxaMINE Maleate 50 MG TABLET 100 MG PO ×2 (09:14→16:56)
[2021-07-21] MEDS: QUEtiapine Fumarate 25 MG TABLET 12.5 MG PO ×2 (09:14→21:55)
[2021-07-21] MEDS: Ampicillin Sodium/Sulbactam Na 3 GM in 0.9 % Sodium Chloride 100 ML IV ×3 (09:14→21:57)
[2021-07-21 10:06] LABS: Troponin-I High Sensitivity 51.4 ng/L (<3.5-35.0)
[2021-07-21] MEDS: Lactated Ringers 1,000 ML 500 ML IVCONT (10:48)
--- NOTE | 2021-07-21 11:03 | MHC.CLN ---
PT IS MODERATELY MALNOURISHED PT WITH MILDLY DEPLETED SUBCUTANEOUS FAT AND MUSCLE MASS NO KNOWN PREVIOUS WT HX PT IS NOW INTUBATED AND SEDATED RECOMMEND TF PROMOTE AT MAX GOAL RATE 75ML/HR WITH 240CC Q SHIFT TO PROVIDE 1800KCALS (2156KCALS WITH SEDATION; 28.7KCALS/KG BASED ON ABW), 113G PROTEIN (1.5G/KG), 2230CC TOTAL FREE WATER FROM FORMULA AND FLUSHES MONITOR TOLERANCE, RESIDUALS AND LYTES PT POTENTIALLY AT RISK FOR RE-FEEDING; MONITOR K, PHOS AND MG CLOSELY SEE ALSO CLINICAL NUTRITION ASSESSMENT
--- NOTE | 2021-07-21 13:13 | P.PNCC_ITS ---
Subjective Subjective Date of Service: 07/21/21 Interval History: 70-year-old gentleman with underlying history of advanced chronic dementia, prior TBI, and hep C, failure to thrive, malnourishment, custodial facility resident admitted on 07/13/2021 with dyspnea and hypoxia secondary to COVID and what appears to be recurrent aspiration. Hospital course significant for waxing and waning hypoxia secondary to COVID and aspiration, treated with dexamethasone and baricitinib and systemic antibiotic, requiring transfer to intensive care unit and emergent intubation for another aspiration event on 07/21/2021 early in a.m.. Critical Care Time (minutes): 60 Physical Exam Vital Signs: Vital Signs: Last Vital Signs Temp 99.3 F 07/21/21 13:00 Pulse 95 07/21/21 13:00 Resp 16 07/21/21 13:00 BP 103/55 L 07/21/21 13:00 Pulse Ox 97 07/21/21 13:00 BMI result Body Mass Index 22.4 Const: General: no acute distress and other ( Sedated on the vent) Nutritional Appearance: malnourished Eyes: Sclerae: sclerae normal EOM: EOMs intact bilaterally Neck: Neck: Yes no lymphadenopathy, Yes trachea midline and Yes supple Resp: Auscultation: crackles ( bibasilar) Cardio: Rate: regular rate Rhythm: regular rhythm Heart sounds: no gallops, no murmurs and no rubs GI: Palpation (GI): Soft to palpation and Other GI palpation findings present ( Nontender) Auscultation: normal bowel sounds Extrem: General: Yes no pedal edema, No clubbing and No cyanosis Objective Data Labs CBC & Chem 7: 07/21/21 07:52 07/21/21 07:52 Labs: Laboratory Results - last 24 hr 07/21/21 07/21/21 07/21/21 03:58 07:52 07:52 WBC 34.5 H* RBC 4.33 L Hgb 12.0 L Hct 37.3 L MCV 86.1 MCH 27.7 MCHC 32.2 RDW 14.6 Plt Count 321 D MPV 11.0 Immature Gran % (Auto) 1.2 H Neut % (Auto) 95.0 H Lymph % (Auto) 1.3 L [place] % (Auto) 2.2 Eos % (Auto) 0.0 Baso % (Auto) 0.3 Lymph # (Auto) 0.5 L [place] # (Auto) 0.8 Eos # (Auto) 0.0 Baso # (Auto) 0.1 Abs Immat Gran (auto) 0.41 H Absolute Neuts (auto) 32.8 H Absolute Nucleated RBC 0.000 Nucleated RBC % (auto) 0.0 Smear Tech's Comments VERIFIED O2 Saturation 91.0 ABG pH at Pt Temp 7.50 H ABG pH (Temp Correct) 7.51 H ABG pCO2 at Pt Temp 20 L* ABG pCO2 (Temp Corrct 19 L* ABG pO2 at Pt Temp 65 L ABG pO2 (Temp Correct 64 L ABG HCO3 16 L ABG Base Excess (Actual) -4.7 VBG pH VBG pCO2 VBG pO2 VBG HCO3 VBG O2 Saturation VBG Base Excess Sodium 147 H Potassium 3.6 Chloride 116 H Carbon Dioxide 20 L Anion Gap 15 BUN 23 H Creatinine 0.99 Estim Creat Clear Calc 75.5 Estimated GFR > 60 Random Glucose 118 H Calcium 10.1 D Phosphorus 4.4 Magnesium 2.3 Total Bilirubin 0.8 AST 32 ALT 40 Alkaline Phosphatase 60 Troponin I High Sens Total Protein 6.1 L Albumin 2.9 L D 07/21/21 07/21/21 07:52 09:37 WBC RBC Hgb Hct MCV MCH MCHC RDW Plt Count MPV Immature Gran % (Auto) Neut % (Auto) Lymph % (Auto) [place] % (Auto) Eos % (Auto) Baso % (Auto) Lymph # (Auto) [place] # (Auto) Eos # (Auto) Baso # (Auto) Abs Immat Gran (auto) Absolute Neuts (auto) Absolute Nucleated RBC Nucleated RBC % (auto) Smear Tech's Comments O2 Saturation ABG pH at Pt Temp ABG pH (Temp Correct) ABG pCO2 at Pt Temp ABG pCO2 (Temp Corrct ABG pO2 at Pt Temp ABG pO2 (Temp Correct ABG HCO3 ABG Base Excess (Actual) VBG pH 7.26 L VBG pCO2 40 VBG pO2 50 VBG HCO3 18 L VBG O2 Saturation 69.0 VBG Base Excess -7.7 Sodium Potassium Chloride Carbon Dioxide Anion Gap BUN Creatinine Estim Creat Clear Calc Estimated GFR Random Glucose Calcium Phosphorus Magnesium Total Bilirubin AST ALT Alkaline Phosphatase Troponin I High Sens 51.4 H Total Protein Albumin Microbiology Microbiology Results: Microbiology 07/14/21 08:34 Blood - Venous Blood Culture - Final No growth after 5 days. 07/13/21 11:50 Blood - Venous Blood Culture - Final No growth after 5 days. 07/13/21 11:50 Blood - Venous Blood Culture - Final Coag negative Staphylococcus 07/14/21 07:28 Blood - Venous Blood Culture - Final Progress Note: A&P Assessment and plan (1) Acute respiratory failure with hypoxia: Status: Acute (2) Alzheimer disease: Status: Acute (3) TBI (traumatic brain injury): Status: Acute (4) HCV (hepatitis C virus): Status: Acute (5) Energy protein malnutrition: Status: Acute (6) Acute respiratory distress syndrome (ARDS) due to COVID-19 virus: Status: Acute (7) Pulmonary aspiration: Status: Acute (8) HTN (hypertension): Status: Acute (9) Alcohol dependence, in remission: Status: Acute Assessment and Plan: Assessment: 70-year-old gentleman with underlying advanced Alzheimer's dementia, failure to thrive, prior TBI, prior alcohol abuse, hep C admitted with dyspnea and hypoxia secondary to combination COVID-19 recurrent pulmonary aspiration Plan: Neuro: underlying advanced Alzheimer's dementia with history of TBI and alcohol dependence. Now with recurrent pulmonary aspiration, likely secondary to loss of protective swallowing reflex. Overall extremity poor prognosis. Cardiac: No acute issues. Pulmonary: Acute hypoxic respiratory failure requiring intubation and ventilatory support secondary to combination of pulmonary aspiration and COVID- 19. Continue with ventilatory support. Renal: Acute kidney injury, likely secondary to underlying COVID. Oliguric. Continue to monitor renal indices and urine output, if continues to decline, may require dialysis. Endo: No acute issues. GI: No acute issues. underlying failure to thrive and at least moderate protein malnutrition. ID: COVID-19 on baricitinib and dexamethasone. Heme/Onc: No acute issues. Psych: No acute issues. Miscellaneous: Request for change of course of status is pending with a court. Prophylaxis: Lovenox, omeprazole Diet: Tube feeds Critical care time spent: 60 minutes excluding separately billable procedures. Quality Stroke Does the patient have a stroke diagnosis?: No VTE Prior VTE?: No VTE Risk Level:: Medical - moderate - high VTE Device Contraindication: Treatment Not Indicated VTE Drug Contraindication: N/A - Med Ordered
[2021-07-21] MEDS: Enoxaparin Sodium 40 MG/0.4 ML SYRINGE SUBCUT (14:02)
[2021-07-21] MEDS: Chlorhexidine Gluc Oral Rinse 15 ML MOUTHWASH BUCCAL ×2 (14:02→21:55)
--- NOTE | 2021-07-21 15:00 | MHC.CM.PN ---
Pt with worsening respiratory function d/t COVID requiring urgent intubation on 07/21. Transferred from [facility]. Pt is a LTC resident of [facility] with a legal guardian, Atty Kacycheryle Lastlett. On 07/22 at 9am, there is an urgent hearing via ZOOM to allow an expansion of guardianship to include DNR/DNI/INSPECTOR LINE. Pt's brother has spoke with CM Director and is in agreement with expansion. ICU MD aware of hearing and will include supportive clinical in the documentation. CM to follow for any changes.
--- NOTE | 2021-07-21 15:05 | MHC.SLORD ---
Speech Language Pathology Order Status: Attempted to see PT p.m., Pt now intubated secondary to worsening Respiratory status. Will monitor for when appropriate to resume Swallow TX.
--- NOTE | 2021-07-21 15:46 | PM.CCN ---
Critical Care Event Note Summary Date of Service: 07/21/21 Code activated: No Narrative: Patient with underlying progressive Alzheimer's dementia, prior traumatic brain injury and alcohol dependence in remission with failure to thrive prior to this hospitalization secondary to essentially approaching end of the lifespan further demonstrated by recurrent aspiration secondary to deterioration of underlying swallowing reflex, now complicating acute COVID-19 infection. As patient requiring intubation secondary to an aspiration event, and not secondary to COVID-19. Even if he gets extubated,it is expected that patient will require subsequent re-intubations as there is no reasonable expectation for his swallowing reflex to recover. Critical Care Time (minutes): 0
[2021-07-21] MEDS: fentaNYL citrate/NS 1,000 MCG/100 ML PLAST..BAG 7.5 MCG IVCONT (19:56)
[2021-07-22] VITALS (18 sets, daily range): BP systolic 101–147; BP diastolic 60–76; PULSE 65–91; RESP 6–19; TEMP 34.9–38.5; O2SAT 82–97
[2021-07-22] MEDS: propofoL 1,000 MG/100 ML VIAL 8.98 MG IVCONT ×2 (01:33→12:07)
[2021-07-22] MEDS: Ampicillin Sodium/Sulbactam Na 3 GM in 0.9 % Sodium Chloride 100 ML IV ×2 (04:33→10:22)
[2021-07-22 05:45] LABS: Basophils Percent Auto 0.1 % (0-2); Hematocrit 32.6 % (42.0-52.0); Hemoglobin 10.4 g/dl (14.0-18.0); Imm Gran Abs Auto 0.21 X10*3/uL (0.00-0.03); Imm Gran Pct Auto 0.8 % (0.0-0.4); Lymphocytes Absolute Auto 0.7 X10*3/uL (1.2-4.9); Lymphocytes Percent Auto 2.7 % (20-40); MANUAL DIFF FLAG SCAN; Mean Corpuscular HGB Conc 31.9 g/dl (31.0-36.0); Mean Corpuscular Hemoglobin 27.4 pg (27.0-33.0); Mean Corpuscular Volume 85.8 fL (80.0-98.0); Mean Platelet Volume 11.3 fL (9.4-12.4); Monocytes Absolute Auto 0.7 X10*3/uL (0.1-1.2); Monocytes Percent Auto 2.7 % (2-11); Neutrophils Absolute Auto 25.3 x10*3/uL (2.0-8.3); Neutrophils Percent Auto 93.7 % (45-73); Platelet Count 275 X10*3/uL (160-400); Red Cell Distribution Width 15.1 % (11.0-16.0); SCAN SMEAR FLAG 1
[2021-07-22 05:50] LABS: VBG Base Excess -1.9 mmol/L; VBG HCO3 22 mmol/L (22-26); VBG pCO2 38 mmHg; VBG pH 7.38 (7.32-7.43); VBG pO2 63 mmHg
[2021-07-22 05:50] LABS: Albumin Level 2.6 g/dL (3.5-5.0); Anion Gap 12 (12-20); Blood Urea Nitrogen 36 mg/dL (9-16); Calcium 8.3 mg/dL (8.4-10.2); Carbon Dioxide 23 mmol/L (22-29); Chloride 115 mmol/L (96-108); Creatinine Clr Calc Pharmacy 63.9; Estimated Glomerular Filt Rate > 60; Glucose Random 175 mg/dL (60-115); Magnesium 2.3 mg/dL (1.6-2.6); Phosphorus 3.6 mg/dL (2.7-4.5); Potassium 4.3 mmol/L (3.3-5.1); Sodium 146 mmol/L (135-145)
[2021-07-22 06:01] LABS: Venous Blood Gas Refer to POC result
[2021-07-22 06:20] LABS: SLIDE REVIEW VERIFIED
[2021-07-22] MEDS: 0.9 % Sodium Chloride Flush 3 ML SYRINGE IVFLUSH (07:43)
--- NOTE | 2021-07-22 10:06 | PM.CCN ---
Critical Care Event Note Summary Date of Service: 07/22/21 Code activated: No Narrative: Probate court hearing held, overall poor prognosis for meaningful recovery discussed and goals of care changed to palliation. Code status changed to comfort measures only. Critical Care Time (minutes): 0
[2021-07-22] MEDS: fluvoxaMINE Maleate 50 MG TABLET 100 MG PO (10:22)
[2021-07-22] MEDS: dexAMETHasone sod phosphate 4 MG/ML VIAL 6 MG IVPUSH (10:22)
[2021-07-22] MEDS: Chlorhexidine Gluc Oral Rinse 15 ML MOUTHWASH BUCCAL (10:22)
[2021-07-22] MEDS: QUEtiapine Fumarate 25 MG TABLET 12.5 MG PO (10:22)
[2021-07-22] MEDS: fentaNYL citrate/NS 1,000 MCG/100 ML PLAST..BAG 5 MCG IVCONT (10:25)
--- NOTE | 2021-07-22 10:40 | MHC.CLN ---
F/U PT'S TF CURRENTLY ON HOLD R/T HIGH RESIDUALS DISCUSSED AT ROUNDS WITH MD AWAITING POSSIBLE RN POSTPARTUM STATUS PER COURT HEARING FOLLOWING WITH TEAM
--- NOTE | 2021-07-22 11:54 | MHC.CM.PN ---
Addendum entered by Heather Argueta 07/22/21 12:48: Calls placed to pt's brother Luis and [facility] offering an invite for an end of life visit. No call back as of yet. Original Note: Pt had a guardianship expansion order signed by the justice of probate court allowing DNR, DNI, RESTAURANT SERVER. Form placed in pt chart and informed MD and RN of approved order.
[2021-07-22] MEDS: LORazepam 2 MG/ML VIAL IVPUSH (13:20)
[2021-07-22] MEDS: fentaNYL citrate/PF 100 MCG/2 ML VIAL IVPUSH (13:20)
--- NOTE | 2021-07-22 15:23 | MHC.SLORD ---
Speech Language Pathology Order Status: Per MD note: Probate court hearing held, overall poor prognosis for meaningful recovery discussed and goals of care changed to palliation. Code status changed to comfort measures only. ST intervention d/c- Please re-refer if dysphagia evaluation is indicated.
--- NOTE | 2021-07-22 16:28 | PM.CCPN ---
Subjective Subjective Date of Service: 07/22/21 Interval History: 70-year-old gentleman with underlying history of advanced chronic dementia, prior TBI, and hep C, failure to thrive, malnourishment, senior living facility resident admitted on 07/13/2021 with dyspnea and hypoxia secondary to COVID and what appears to be recurrent aspiration. Hospital course significant for waxing and waning hypoxia secondary to COVID and aspiration, treated with dexamethasone and baricitinib and systemic antibiotic, requiring transfer to intensive care unit and emergent intubation for another aspiration event on 07/21/2021 early in a.m.. Events overnight. Probate court session held and goals of care changed to palliation with code status changed to comfort measures only. Patient has been terminally extubated. Critical Care Time (minutes): 0 Physical Exam Vital Signs: Vital Signs: Last Vital Signs Temp 99.7 F 07/22/21 13:00 Pulse 69 07/22/21 13:00 Resp 18 07/22/21 13:00 BP 131/68 07/22/21 13:00 Pulse Ox 97 07/22/21 13:00 BMI result Body Mass Index 22.4 Const: General: no acute distress Eyes: Sclerae: sclerae normal Neck: Neck: Yes no lymphadenopathy, Yes trachea midline and Yes supple Resp: Effort & Inspection: normal respiratory effort and no respiratory distress Auscultation: clear to auscultation bilaterally Cardio: Rate: regular rate Rhythm: regular rhythm Heart sounds: no gallops, no murmurs and no rubs GI: Palpation (GI): Soft to palpation and Other GI palpation findings present ( Nontender) Auscultation: normal bowel sounds Extrem: General: Yes no pedal edema, No clubbing and No cyanosis Objective Data Labs CBC & Chem 7: 07/22/21 05:25 07/22/21 05:25 Labs: Laboratory Results - last 24 hr 07/22/21 07/22/21 07/22/21 05:25 05:25 05:44 WBC 27.0 H RBC 3.80 L Hgb 10.4 L Hct 32.6 L MCV 85.8 MCH 27.4 MCHC 31.9 RDW 15.1 Plt Count 275 MPV 11.3 Immature Gran % (Auto) 0.8 H Neut % (Auto) 93.7 H Lymph % (Auto) 2.7 L [place] % (Auto) 2.7 Eos % (Auto) 0.0 Baso % (Auto) 0.1 Lymph # (Auto) 0.7 L [place] # (Auto) 0.7 Eos # (Auto) 0.0 Baso # (Auto) 0.0 Abs Immat Gran (auto) 0.21 H Absolute Neuts (auto) 25.3 H Absolute Nucleated RBC 0.000 Nucleated RBC % (auto) 0.0 Smear Tech's Comments VERIFIED VBG pH 7.38 VBG pCO2 38 VBG pO2 63 VBG HCO3 22 VBG O2 Saturation 88.0 VBG Base Excess -1.9 Sodium 146 H Potassium 4.3 Chloride 115 H Carbon Dioxide 23 Anion Gap 12 BUN 36 H D Creatinine 1.17 Estim Creat Clear Calc 63.9 Estimated GFR > 60 Random Glucose 175 H D Calcium 8.3 L D Phosphorus 3.6 Magnesium 2.3 Albumin 2.6 L Microbiology Microbiology Results: Microbiology 07/14/21 08:34 Blood - Venous Blood Culture - Final No growth after 5 days. 07/13/21 11:50 Blood - Venous Blood Culture - Final No growth after 5 days. 07/13/21 11:50 Blood - Venous Blood Culture - Final Coag negative Staphylococcus 07/14/21 07:28 Blood - Venous Blood Culture - Final Progress Note: A&P Assessment and plan (1) Comfort measures only status: Status: Acute (2) Pulmonary aspiration: Status: Acute (3) Acute respiratory distress syndrome (ARDS) due to COVID-19 virus: Status: Acute (4) Alcohol dependence, in remission: Status: Acute (5) Energy protein malnutrition: Status: Acute (6) Acute metabolic encephalopathy: Status: Acute (7) Acute respiratory failure with hypoxia: Status: Acute (8) Alzheimer disease: Status: Acute (9) TBI (traumatic brain injury): Status: Acute (10) HCV (hepatitis C virus): Status: Acute Assessment and Plan: Assessment: 70-year-old gentleman with underlying advanced Alzheimer's dementia, failure to thrive, prior TBI, prior alcohol abuse, hep C admitted with dyspnea and hypoxia secondary to combination COVID-19 recurrent pulmonary aspiration Plan: Probate court session held, goals of care changed to palliation, patient's code status changed to comfort measures only. He has been terminally extubated and now remains comfortable on fentanyl drip and as needed p.r.n. benzodiazepines. Quality Stroke Does the patient have a stroke diagnosis?: No VTE Prior VTE?: No VTE Risk Level:: Medical - moderate - high VTE Device Contraindication: Treatment Not Indicated VTE Drug Contraindication: N/A - Med Ordered
[2021-07-22] MEDS: fentaNYL citrate/NS 1,000 MCG/100 ML PLAST..BAG 15 MCG IVCONT (22:17)
--- NOTE | 2021-07-22 22:28 | PC.NURSE ---
patient transferred from ICU to [facility] room 487 at 19:00 as comfort mesures only, Pt resting with eyes closed, fentanyl drip is infusing for comfort .
[2021-07-23] MEDS: 0.9 % Sodium Chloride Flush 3 ML SYRINGE IVFLUSH (00:40)
[2021-07-23] MEDS: fentaNYL citrate/NS 1,000 MCG/100 ML PLAST..BAG 15 MCG IVCONT ×2 (04:03→11:31)
--- NOTE | 2021-07-23 11:33 | PC.NURSE ---
Fentanyl drip changed with Vanessa ALEX. 7.5cc wasted together from previous bag. Current bag hung and secured in locked box
--- NOTE | 2021-07-23 11:41 | PM.EVENT ---
Event Note Date of Service: 07/23/21 Event Note: Seen in f/u: comfort measure, breathigng easy, Full exam: not medically necessary Plan: To continue present care for comfort measures, related to acute hypoxic respriatory failure related to covid,
--- NOTE | 2021-07-23 13:22 | P.DS_ITS ---
DS: Providers Provider Date of Service: 07/23/21 Date of admission: 07/13/21 13:02 Primary care physician: Vandana Lind MD DS: Diagnosis Discharge Diagnosis (1) Comfort measures only status: Status: Acute (2) Pulmonary aspiration: Status: Acute (3) Acute respiratory distress syndrome (ARDS) due to COVID-19 virus: Status: Acute (4) Alcohol dependence, in remission: Status: Acute (5) Energy protein malnutrition: Status: Acute (6) Acute metabolic encephalopathy: Status: Acute (7) Acute respiratory failure with hypoxia: Status: Acute (8) Alzheimer disease: Status: Acute (9) TBI (traumatic brain injury): Status: Acute (10) HCV (hepatitis C virus): Status: Acute DS: Summary Hospital Course Hospital Course: Hospital course: 70-year-old gentleman with underlying history of advanced chronic dementia, prior TBI, and hep C,? failure to thrive, malnourishment, alf facility resident admitted on 07/13/2021 with dyspnea and hypoxia secondary to COVID and what appears to be recurrent aspiration.? Hospital course significant for waxing and waning hypoxia secondary to COVID and aspiration, treated with dexamethasone and baricitinib and systemic antibiotic, and oxygen. He requiring transfer to intensive care unit and emergent intubation for another aspiration event on 07/21/2021 early in a.m following this, a ? Probate court hearing took place and goals of care was established to palliation with code status changed to comfort measures only.? Patient was terminally extubated and given IV Fentaly drip for comfort and this will be change to oral morphine at time of discharged, along with ativan for anxiety and Scopolamine to control secretion. Patient's guardian is aware of transfer back to SNF for rest of care. Final diagnoses: Covid 19 covid pneumon Acute hypoxic respriatory failure Aspiration pneumonia Adult Failure to thrive chronic malnutrition TBI Dysphagia Metabolic encephalopathy HypRRnatremia HCV Time Spent with Patient Time attestation: Total time spent providing and/or coordinating discharge services: Discharge coordination time: Greater than 30 minutes Quality: Stroke Does the patient have a stroke diagnosis?: No Physical Exam Verdana 4l Vital Signs: Verdana 4d Verdana 4d Vital Signs: Verdana 4d Verdana 4Bd Last Vital Signs Verdana 4d Slip Cover Seamstress New 4d Slip Cover Seamstress New 4d Temp 99.7 F 07/22/21 13:00 Slip Cover Seamstress New 4d Pulse 69 07/22/21 13:00 Slip Cover Seamstress Brianda 4d Resp 18 07/22/21 13:00 BP 131/68 07/22/21 13:00 Pulse Ox 97 07/22/21 13:00 BMI result Body Mass Index 22.4 Discharge Plan Discharge Anticipated Discharge Date/Time: 07/23/21 13:28 Patient Disposition: Xfer SNF Discharge Diagnosis: Acute hypoxic respriatory failure due to covid pneumonia Referrals: Vandana Lind MD [Primary Care Provider] - 1 Week Discharge Medications: New lorazepam 0.5 mg Tablet 0.5 mg PO Q6H PRN (Reason: Anxiety and restlessness) Qty: 16 RF: 0 morphine 10 mg/5 mL Solution 5 mg sublingual Q2H PRN (Reason: Pain and comfort) Qty: 30 RF: 0 Discontinued quetiapine 25 mg Tablet 12.5 mg PO TID RF: 0 melatonin 3 mg Tablet 6 mg PO BEDTIME RF: 0 fluvoxamine 100 mg Tablet 100 mg PO BID@0900,1700 RF: 0 acetaminophen 325 mg Tablet 650 mg PO Q8H PRN (Reason: pain/fever) RF: 0 ondansetron HCl 4 mg Tablet 4 mg PO Q6H PRN (Reason: Nausea And Vomiting) RF: 0 magnesium hydroxide [Milk of Magnesia] 400 mg/5 mL Suspension 30 ml PO DAILY PRN (Reason: Constipation) RF: 0 bisacodyl 10 mg Suppository 10 mg MD Q24H PRN (Reason: Constipation) RF: 0 omeprazole 20 mg Capsule,Delayed Release(Dr/Ec) 20 mg PO BID@0630,1630 RF: 0 simethicone 80 mg Tablet,Chewable 80 mg PO TIDWM RF: 0 quetiapine 50 mg Tablet 75 mg PO TUFR@0600 RF: 0 Discharge Orders: Discharge Order (Routine); Ordered 07/23/21 Ordered By: Jasvir Kyle Activity on Discharge: NPO (meds by mouth ok) Stand Alone Forms: Patient Portal Discharge page Care Plan Goals: Comfort care Health Concerns: No health concerns at this time as status changed to comfort care Plan of Treatment: Comfort care--See medication orders Assessment: as above
--- NOTE | 2021-07-23 13:39 | MHC.CM.PN ---
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 He is transferring back to [facility] today. His Guardian has been updated. She agrees with discharge back to [facility] on comfort measures. Discharge information has been sent to the facility. He will transport via BLS.
[2021-07-23] MEDS: Morphine Sulfate Oral Sol 10 MG/5 ML SOLUTION 5 MG SUBLINGUAL (15:35)
--- NOTE | 2021-07-23 15:36 | PC.NURSE ---
AUTO ENGINE MECHANIC Meds Fentanyl d/c'd per provider, witnessed and wasted in pyxis along with Clin Cord, morphine 5mg oral solution given. Pt set to d/c t6o facility for [id number]
--- NOTE | 2021-07-23 16:35 | PC.NURSE ---
Handover Called [facility] and gave report on pt's status;p personnel had no further questions
--- NOTE | 2021-07-23 17:48 | PC.NURSE ---
molst mOLST WAS SIGNED BY HOWEVER NOT BY GUARDIAN INTERACTION WAS DONE VIA ZOOM, GAVE SHAGUFTA OF NOTES PER mOLST TO public events facilities rental manager AWARE OF SITUATION
== END 2021-07-23 18:03 | disposition skilled nursing facility (03) | DRG 137 ==
LOC: HO.ED 12:26 → HO.EDOVER 13:23 → HO.IMC 07-14 09:19 → HO.EDOVER 07-14 09:41 → HO.IMC 07-14 11:49 → HO.ICU 07-21 04:49 → HO.IMC 07-22 18:31
PROVIDERS: Hospitalist; Internal Medicine Pulmonary Disease; Registered Nurse Community Health; Student in an Organized Health Care Education/Training Program; Admitting Provider Internal Medicine; Emergency Provider Emergency Medicine; PCP Internal Medicine; Visit Provider Internal Medicine
DX: U07.1 COVID-19 (principal); J12.82 Pneumonia due to coronavirus disease 2019; J69.0 Pneumonitis due to inhalation of food and vomit; G93.41 Metabolic encephalopathy; J80 Acute respiratory distress syndrome; E44.0 Moderate protein-calorie malnutrition; G30.9 Alzheimer's disease, unspecified; F02.80 Dementia in other diseases classified elsewhere, unspecified severity, without behavioral disturbance, psychotic disturbance, mood disturbance, and anxiety; E87.0 Hyperosmolality and hypernatremia; E86.0 Dehydration; B19.20 Unspecified viral hepatitis C without hepatic coma; R62.7 Adult failure to thrive; F10.21 Alcohol dependence, in remission; Z68.22 Body mass index [BMI] 22.0-22.9, adult; Z87.820 Personal history of traumatic brain injury; Z87.891 Personal history of nicotine dependence; Z79.899 Other long term (current) drug therapy; Z51.5 Encounter for palliative care
CPT/HCPCS: 36415; 36600; 71045; 80048; 80053; 81001; 82040; 82803; 82947; 83605; 83615; 83735; 84100; 84484; 85007; 85025; 85027; 85379; 86140; 87040; 87147; 87205; 87635; 92526; 92610; 93005; 94002; 94003; 96361; 96365; 96375; 99285; 99291; J0171; J0295; J1100; J1650; J2060; J2250; J2270; J2543; J3010; J3370